=== PATIENT | female | born 1940 | race Caucasian/White ===

== ENCOUNTER → 2016-12-12 | Outpatient (CLI) | payer MEDICARE, BC ==
--- NOTE | 2016-12-13 14:41 | MM ---
Reason for exam: screening (asymptomatic). Last mammogram was performed 1 year and 1 month ago. History: Patient is postmenopausal. Took estrogen for 1 year. Physical Findings: A clinical breast exam by your physician is recommended on an annual basis and results should be correlated with mammographic findings. MG 3D Screening Mammo W/Cad Bilateral CC and MLO view(s) were taken. Prior study comparison: October 31, 2015, bilateral MG screening mammo w CAD. May 31, 2014, mammogram, performed at [facility]. There are scattered fibroglandular densities. There is no discrete abnormality. No significant changes when compared with prior studies. ASSESSMENT: Negative, BI-RAD 1 RECOMMENDATION: Routine screening mammogram of both breasts in 1 year.
== END | disposition home or self-care (01) ==
LOC: RADMAMWWP 08:56
PROVIDERS: ATTEND Family Medicine
DX: Z12.31 Encounter for screening mammogram for malignant neoplasm of breast (principal)
CPT/HCPCS: 77063; G0202

== ENCOUNTER 2017-09-03 13:03 | Emergency (ER) | payer MEDICARE, BC ==
[2017-09-03] MEDS ORDERED: ALBUTEROL NEBULIZED 2.5 MG/3 ML INHALATION STA (14:49)
[2017-09-03] MEDS ORDERED: predniSONE 50 MG TAB PO STA (14:49)
[2017-09-03] MEDS ORDERED: IPRATROPIUM-ALBUTEROL 3 ML NEB INHALATION STA (14:49)
[2017-09-03] MEDS ORDERED: guaiFENesin-Coden 100-10MG/5ML 10 ML CUP PO STA (14:53)
[2017-09-03 15:17] LABS: Basophils % (A) 0 %; Eosinophils # (A) 0.1 k/uL (0-0.7); Eosinophils % (A) 1 %; HCT 42.8 % (34.0-46.0); HGB 14.1 gm/dL (11.4-16.0); Lymphocytes # (A) 1.9 k/uL (1.0-4.8); Lymphocytes % (A) 12 %; MCH 31.5 pg (25.0-35.0); MCV 95.5 fL (80.0-100.0); Mean Platelet Volume 7.5; Monocytes # (A) 1.1 k/uL (0-1.0); Monocytes % (A) 7 %; Neutrophils # (A) 12.7 k/uL (1.3-7.7); Neutrophils % (A) 79 %; Platelet Count 256 k/uL (150-450); RBC 4.48 m/uL (3.80-5.40); RDW 13.8 % (11.5-15.5)
[2017-09-03 15:31] LABS: ALT 62 U/L (9-52); AST 42 U/L (14-36); Albumin 4.5 g/dL (3.5-5.0); Alkaline Phosphatase 74 U/L (38-126); Anion Gap 12 mmol/L; Blood Urea Nitrogen 24 mg/dL (7-17); Calcium 9.5 mg/dL (8.4-10.2); Carbon Dioxide 28 mmol/L (22-30); Chloride 102 mmol/L (98-107); Glucose 109 mg/dL (74-99); Magnesium 2.4 mg/dL (1.6-2.3); Potassium 4.4 mmol/L (3.5-5.1); Sodium 142 mmol/L (137-145); Total Bilirubin 0.4 mg/dL (0.2-1.3); Total Protein 7.2 g/dL (6.3-8.2)
[2017-09-03 15:41] LABS: Prothrombin Time 9.8 sec (9.0-12.0)
--- NOTE | 2017-09-03 16:01 | XR ---
EXAMINATION TYPE: XR chest 2V DATE OF EXAM: 09/03/2017 COMPARISON: 08/31/2017 HISTORY: 77-year-old female with chest pain TECHNIQUE: Frontal and lateral views FINDINGS: Heart normal size. Atherosclerotic arch calcifications. Prominent vasculature within normal limits. S ome mild patchy medial right basilar and peripheral left basilar densities seen slightly increased. N o pleural effusion. IMPRESSION: Some increased medial right basilar and peripheral left basilar densities could represent atelectasis or developing infiltrates.
--- NOTE | 2017-09-03 16:11 | ED ---
URI HPI - General Chief Complaint: Upper Respiratory Infection Stated Complaint: Cough Time Seen by Provider: 09/03/17 14:40 Source: patient, family Mode of arrival: ambulatory Limitations: no limitations - History of Present Illness Initial Comments: Patient complains of difficulty in breathing. She has history of COPD. She is not currently taking and sides. She has no chest pain or pressure. She has no palpitations. She has taken some inhaler medication at home with minimal relief. She has no neck pain or stiffness. She has no pain or swelling the legs. She has no palpitations. She has no headache. - Related Data Home Medications Medication Instructions Recorded Confirmed Rosuvastatin Calcium [Crestor] 40 mg PO HS 08/31/17 09/03/17 Ipratropium-Albuterol Nebulize 3 ml INHALATION RT-QID PRN 09/03/17 09/03/17 [Duoneb 0.5 mg-3 mg/3 ml Soln] guaiFENesin SYRUP 100MG/5ML 400 mg PO Q6H PRN 09/03/17 09/03/17 [Robitussin] predniSONE See Taper PO DAILY 09/03/17 09/03/17 Previous Rx's Medication Instructions Recorded Budesonide-Formot 160-4.5 Mcg 2 puff INHALATION RT-BID #1 puff 09/02/17 [Symbicort 160-4.5 Mcg Inhaler] Cefdinir [Omnicef] 300 mg PO BID #14 cap 09/02/17 guaiFENesin [Mucinex] 600 mg PO Q12HR #60 tablet.er 09/02/17 Doxycycline Hyclate 100 mg PO BID #20 tab 09/03/17 guaiFENesin-Coden 100-10MG/5ML 10 ml PO Q6HR PRN #200 ml 09/03/17 [Robitussin AC] Allergies Allergy/AdvReac Type Severity Reaction Status Date / Time Sulfa (Sulfonamide Allergy Rash/Hives Verified 09/03/17 15:14 Antibiotics) Review of Systems ROS Statement: Those systems with pertinent positive or pertinent negative responses have been documented in the HPI. ROS Other: All systems not noted in ROS Statement are negative. Past Medical History Past Medical History: COPD, Hyperlipidemia, Pulmonary Embolus (PE) Additional Past Medical History / Comment(s): Patient states that she has history of Pulmonary Embolism about 6 years ago. She was placed on Coumadin and monitored for 6 months and then taken off Coumadin at that time. History of Any Multi-Drug Resistant Organisms: None Reported Past Surgical History: Hysterectomy Additional Past Surgical History / Comment(s): Hysterectomy 40 years ago r/t benign tumor. Past Anesthesia/Blood Transfusion Reactions: No Reported Reaction Past Psychological History: No Psychological Hx Reported Smoking Status: Current every day smoker Past Alcohol Use History: Occasional Past Drug Use History: None Reported - Past Family History Father Family Medical History: Myocardial Infarction ([place]) Mother Family Medical History: No Reported History General Exam Limitations: no limitations General appearance: alert, in no apparent distress Head exam: Present: atraumatic, normocephalic, normal inspection Eye exam: Present: normal appearance, PERRL, EOMI. Absent: scleral icterus, conjunctival injection, periorbital swelling ENT exam: Present: normal exam, mucous membranes moist Neck exam: Present: normal inspection. Absent: tenderness, meningismus, lymphadenopathy Respiratory exam: Present: normal lung sounds bilaterally, wheezes. Absent: respiratory distress, rales, rhonchi, stridor Cardiovascular Exam: Present: regular rate, normal rhythm, normal heart sounds. Absent: systolic murmur, diastolic murmur, rubs, gallop, clicks GI/Abdominal exam: Present: soft, normal bowel sounds. Absent: distended, tenderness, guarding, rebound, rigid Extremities exam: Present: normal inspection, full ROM, normal capillary refill. Absent: tenderness, pedal edema, joint swelling, calf tenderness Back exam: Present: normal inspection Neurological exam: Present: alert, oriented X3, CN II-XII intact Psychiatric exam: Present: normal affect, normal mood Skin exam: Present: warm, dry, intact, normal color. Absent: rash Course Vital Signs 09/03/17 09/03/17 09/03/17 13:10 15:21 15:31 Temperature 97.3 F L Pulse Rate 70 71 74 Respiratory 18 Rate Blood Pressure 138/81 O2 Sat by Pulse 91 L Oximetry 09/03/17 09/03/17 09/03/17 15:32 15:42 16:00 Temperature Pulse Rate 74 78 74 Respiratory 20 Rate Blood Pressure 184/87 O2 Sat by Pulse 96 Oximetry Medical Decision Making - Medical Decision Making Patient presents with difficulty in breathing. She has diffuse wheezing and is given breathing treatments and steroids. Chest x-rays negative. Laboratory studies are normal. Patient is feeling better on reevaluation. I will prescribe her doxycycline and Robitussin-AC to go home on. - Lab Data Result diagrams: 09/03/17 14:55 09/03/17 14:55 Lab Results 09/03/17 09/03/17 09/03/17 Range/Units 14:55 14:55 14:55 WBC 16.0 H (3.8-10.6) k/uL RBC 4.48 (3.80-5.40) m/uL Hgb 14.1 (11.4-16.0) gm/dL Hct 42.8 (34.0-46.0) % MCV 95.5 (80.0-100.0) fL MCH 31.5 (25.0-35.0) pg MCHC 33.0 (31.0-37.0) g/dL RDW 13.8 (11.5-15.5) % Plt Count 256 (150-450) k/uL Neutrophils % 79 % Lymphocytes % 12 % Monocytes % 7 % Eosinophils % 1 % Basophils % 0 % Neutrophils # 12.7 H (1.3-7.7) k/uL Lymphocytes # 1.9 (1.0-4.8) k/uL Monocytes # 1.1 H (0-1.0) k/uL Eosinophils # 0.1 (0-0.7) k/uL Basophils # 0.0 (0-0.2) k/uL PT (9.0-12.0) sec INR (<1.2) APTT (22.0-30.0) sec Sodium 142 (137-145) mmol/L Potassium 4.4 (3.5-5.1) mmol/L Chloride 102 (98-107) mmol/L Carbon Dioxide 28 (22-30) mmol/L Anion Gap 12 mmol/L BUN 24 H (7-17) mg/dL Creatinine 0.72 (0.52-1.04) mg/dL Est GFR (MDRD) Af Amer >60 (>60 ml/min/1.73 sqM) Est GFR (MDRD) Non-Af >60 (>60 ml/min/1.73 sqM) Glucose 109 H (74-99) mg/dL Calcium 9.5 (8.4-10.2) mg/dL Magnesium 2.4 H (1.6-2.3) mg/dL Total Bilirubin 0.4 (0.2-1.3) mg/dL AST 42 H (14-36) U/L ALT 62 H (9-52) U/L Alkaline Phosphatase 74 (38-126) U/L Troponin I (0.000-0.034) ng/mL NT-Pro-B Natriuret Pep pg/mL Total Protein 7.2 (6.3-8.2) g/dL Albumin 4.5 (3.5-5.0) g/dL Influenza Type A RNA Not Detected (Not Detectd) Influenza Type B (PCR) Not Detected (Not Detectd) 09/03/17 09/03/17 09/03/17 Range/Units 14:55 14:55 14:55 WBC (3.8-10.6) k/uL RBC (3.80-5.40) m/uL Hgb (11.4-16.0) gm/dL Hct (34.0-46.0) % MCV (80.0-100.0) fL MCH (25.0-35.0) pg MCHC (31.0-37.0) g/dL RDW (11.5-15.5) % Plt Count (150-450) k/uL Neutrophils % % Lymphocytes % % Monocytes % % Eosinophils % % Basophils % % Neutrophils # (1.3-7.7) k/uL Lymphocytes # (1.0-4.8) k/uL Monocytes # (0-1.0) k/uL Eosinophils # (0-0.7) k/uL Basophils # (0-0.2) k/uL PT 9.8 (9.0-12.0) sec INR 1.0 (<1.2) APTT 20.0 L (22.0-30.0) sec Sodium (137-145) mmol/L Potassium (3.5-5.1) mmol/L Chloride (98-107) mmol/L Carbon Dioxide (22-30) mmol/L Anion Gap mmol/L BUN (7-17) mg/dL Creatinine (0.52-1.04) mg/dL Est GFR (MDRD) Af Amer (>60 ml/min/1.73 sqM) Est GFR (MDRD) Non-Af (>60 ml/min/1.73 sqM) Glucose (74-99) mg/dL Calcium (8.4-10.2) mg/dL Magnesium (1.6-2.3) mg/dL Total Bilirubin (0.2-1.3) mg/dL AST (14-36) U/L ALT (9-52) U/L Alkaline Phosphatase (38-126) U/L Troponin I <0.012 (0.000-0.034) ng/mL NT-Pro-B Natriuret Pep 559 pg/mL Total Protein (6.3-8.2) g/dL Albumin (3.5-5.0) g/dL Influenza Type A RNA (Not Detectd) Influenza Type B (PCR) (Not Detectd) 09/03/17 16:09 Twelve-lead EKG shows ventricular rate 62 bpm, normal [place] interval and QRS complexes, no ST elevation or depression, interpreted by me as normal sinus rhythm. Disposition Clinical Impression: Acute exacerbation of chronic obstructive airways disease Disposition: HOME SELF-CARE Condition: Good Instructions: Upper Respiratory Infection (ED) Prescriptions: Doxycycline Hyclate 100 mg PO BID #20 tab guaiFENesin-Coden 100-10MG/5ML [Robitussin AC] 10 ml PO Q6HR PRN #200 ml PRN Reason: Cough Referrals: Radha Ramires DO [Primary Care Provider] - 1-2 days Time of Disposition: 16:11
[2017-09-03 16:22] VITALS: BP 176/77; PULSE 83; RESP 18; TEMP 98.3
== END 2017-09-03 16:29 | disposition home or self-care (01) ==
LOC: EC 13:03
DX: J44.1 Chronic obstructive pulmonary disease with (acute) exacerbation (principal); E78.5 Hyperlipidemia, unspecified; F17.200 Nicotine dependence, unspecified, uncomplicated; Z88.2 Allergy status to sulfonamides; Z79.52 Long term (current) use of systemic steroids; Z79.899 Other long term (current) drug therapy
CPT/HCPCS: 36415; 94640 ×2; 93005; 83880; 80053; 83735; 84484; 85025; 85610; 85730; 87502; 71046; 99284; J7512

== ENCOUNTER → 2018-02-12 | Outpatient (CLI) | payer MEDICARE, BC ==
--- NOTE | 2018-02-13 10:26 | MM ---
Reason for exam: screening (asymptomatic). Last mammogram was performed 1 year and 2 months ago. History: Patient is postmenopausal. Took estrogen for 1 year. Physical Findings: A clinical breast exam by your physician is recommended on an annual basis and results should be correlated with mammographic findings. MG 3D Screening Mammo W/Cad Bilateral CC and MLO view(s) were taken. Prior study comparison: December 12, 2016, bilateral MG 3d screening mammo w/cad. October 31, 2015, bilateral MG screening mammo w CAD. The breast tissue is heterogeneously dense. This may lower the sensitivity of mammography. There is no discrete abnormality. No significant changes when compared with prior studies. ASSESSMENT: Negative, BI-RAD 1 RECOMMENDATION: Routine screening mammogram of both breasts in 1 year.
== END | disposition home or self-care (01) ==
LOC: RADMAMWWP 09:35
PROVIDERS: ATTEND Family Medicine
DX: Z12.31 Encounter for screening mammogram for malignant neoplasm of breast (principal)
CPT/HCPCS: 77063; 77067

== ENCOUNTER 2018-07-28 05:53 | Emergency (ER) | payer MEDICARE, BC ==
[2018-07-28 06:05] VITALS: TEMP 98
--- NOTE | 2018-07-28 07:07 | XR ---
EXAMINATION TYPE: XR shoulder complete RT DATE OF EXAM: 07/28/2018 COMPARISON: NONE HISTORY: Fall. Pain TECHNIQUE: 3 views FINDINGS: There is comminuted fracture of the humeral neck. There is no dislocation. Scapula appears intact. IMPRESSION: Acute comminuted humeral neck fracture.
--- NOTE | 2018-07-28 07:08 | XR ---
EXAMINATION TYPE: XR ribs RT DATE OF EXAM: 07/28/2018 COMPARISON: NONE HISTORY: Fall. Rib pain. TECHNIQUE: 2 views FINDINGS: I see no pleural effusion or pneumothorax. Right lung is clear of infiltrate. There is no e vidence of a rib fracture. There is an impacted comminuted humeral neck fracture noted. IMPRESSION: No rib fracture seen.
--- NOTE | 2018-07-28 07:09 | ED ---
Upper Extremity HPI - General Chief Complaint: Extremity Injury, Upper Stated Complaint: Shoulder Injury Time Seen by Provider: 07/28/18 06:36 Source: patient Mode of arrival: ambulatory Limitations: no limitations - History of Present Illness Initial Comments: Also pleasant 78-year-old female who presents to the emergency department today for evaluation of right shoulder pain. Patient reports she had a mechanical trip and fall yesterday landing on her right shoulder, she reports she slept on a couch all night - Related Data Home Medications Medication Instructions Recorded Confirmed Rosuvastatin Calcium [Crestor] 40 mg PO HS 08/31/17 09/03/17 Ipratropium-Albuterol Nebulize 3 ml INHALATION RT-QID PRN 09/03/17 09/03/17 [Duoneb 0.5 mg-3 mg/3 ml Soln] guaiFENesin SYRUP 100MG/5ML 400 mg PO Q6H PRN 09/03/17 09/03/17 [Robitussin] predniSONE See Taper PO DAILY 09/03/17 09/03/17 Previous Rx's Medication Instructions Recorded Budesonide-Formot 160-4.5 Mcg 2 puff INHALATION RT-BID #1 puff 09/02/17 [Symbicort 160-4.5 Mcg Inhaler] Cefdinir [Omnicef] 300 mg PO BID #14 cap 09/02/17 guaiFENesin [Mucinex] 600 mg PO Q12HR #60 tablet.er 09/02/17 Doxycycline Hyclate 100 mg PO BID #20 tab 09/03/17 guaiFENesin-Coden 100-10MG/5ML 10 ml PO Q6HR PRN #200 ml 09/03/17 [Robitussin AC] Acetaminophen with Codeine 1 tab PO Q6H PRN 3 Days #12 tab 07/28/18 [Tylenol w/codeine #3] Allergies Allergy/AdvReac Type Severity Reaction Status Date / Time Sulfa (Sulfonamide Allergy Rash/Hives Verified 09/03/17 15:14 Antibiotics) Review of Systems ROS Statement: Those systems with pertinent positive or pertinent negative responses have been documented in the HPI. ROS Other: All systems not noted in ROS Statement are negative. Past Medical History Past Medical History: COPD, Hyperlipidemia, Pulmonary Embolus (PE) Additional Past Medical History / Comment(s): Patient states that she has history of Pulmonary Embolism about 6 years ago. She was placed on Coumadin and monitored for 6 months and then taken off Coumadin at that time. History of Any Multi-Drug Resistant Organisms: None Reported Past Surgical History: Hysterectomy Additional Past Surgical History / Comment(s): Hysterectomy 40 years ago r/t benign tumor. Past Anesthesia/Blood Transfusion Reactions: No Reported Reaction Past Psychological History: No Psychological Hx Reported Smoking Status: Current every day smoker Past Alcohol Use History: Occasional Past Drug Use History: None Reported - Past Family History Father Family Medical History: Myocardial Infarction ([place]) Mother Family Medical History: No Reported History General Exam - General Exam Comments Initial Comments: Physical Exam GENERAL: Patient is well-developed and well-nourished. Patient is nontoxic and well- hydrated and is in no distress. HENT: Normocephalic, Atraumatic. EYES: PERRL, EOMI PULMONARY: Unlabored respirations. No audible rales rhonchi or wheezing was noted. CARDIOVASCULAR: There is a regular rate and rhythm without any murmurs gallops or rubs. ABDOMEN: Soft and nontender with normal bowel sounds. SKIN: Skin is clear with no lesions or rashes and otherwise unremarkable. : Deferred NEUROLOGIC: Patient is alert and oriented x3. Moving all extremities spontaneously MUSCULOSKELETAL: Increase range of motion of right shoulder secondary to pain PSYCHIATRIC: Normal psychiatric evaluation. Limitations: no limitations Limitations: no limitations Course Vital Signs 07/28/18 06:02 Temperature 98.0 F Pulse Rate 76 Respiratory 16 Rate Blood Pressure 159/77 O2 Sat by Pulse 99 Oximetry Medical Decision Making - Medical Decision Making The patient was seen and evaluated, history is obtained from the patient Studies ordered Reveals a comminuted humeral neck fracture Patient is neurovascularly intact Patient was given Tylenol 3 for pain management arm was placed in a sling Patient was advised she needs to follow-up with orthopedic surgery for further management. Considering that it is [place] and pharmacies are not open in this area patient was given 2 Tylenol 3 starter packs for pain management as well as a prescription for Tylenol 3. Dangers of narcotic medications in the need for observation were discussed with the patient and her son at bedside, son is a lot of force officer familiar with narcotics. He is comfortable with this plan. All questions pertaining care were answered and parameters were discussed patient was discharged home in stable condition. Disposition Clinical Impression: Fracture of humerus Disposition: HOME SELF-CARE Instructions: Arm Fracture in Adults (ED) Additional Instructions: You have a comminuted left humerus neck fracture Prescriptions: Acetaminophen with Codeine [Tylenol w/codeine #3] 1 tab PO Q6H PRN 3 Days #12 tab PRN Reason: Pain Is patient prescribed a controlled substance at d/c from ED?: Yes Referrals: Radha Ramires DO [Primary Care Provider] - 1-2 days Taco Smith DO [Doctor of Osteopathic Medicine] - 1-2 days
[2018-07-28] MEDS ORDERED: ACET/COD 300 MG/30 MG STARTER PACK 6 TAB BTL PO STA ×2 (07:11→07:17)
[2018-07-28 07:47] VITALS: BP 134/82; PULSE 70; RESP 20
== END 2018-07-28 07:40 | disposition home or self-care (01) ==
LOC: EC 05:53
DX: S42.291A Other displaced fracture of upper end of right humerus, initial encounter for closed fracture (principal); J44.9 Chronic obstructive pulmonary disease, unspecified; E78.5 Hyperlipidemia, unspecified; F17.200 Nicotine dependence, unspecified, uncomplicated; Z88.2 Allergy status to sulfonamides; Z79.52 Long term (current) use of systemic steroids; Z79.899 Other long term (current) drug therapy; W01.0XXA Fall on same level from slipping, tripping and stumbling without subsequent striking against object, initial encounter
CPT/HCPCS: 99283

== ENCOUNTER → 2018-07-31 | Outpatient (CLI) | payer MEDICARE, BC ==
--- NOTE | 2018-08-01 13:57 | CT ---
EXAMINATION TYPE: CT shoulder RT wo con DATE OF EXAM: 07/31/2018 COMPARISON: Right shoulder x-rays 07/28/2018 HISTORY: right shoulder pain following fall [address] DLP: 496 mGycm Automated exposure control for dose reduction was used. TECHNIQUE: Axial images through the right shoulder at 3 mm thick sections. Reconstructed images perfo rmed in the coronal and sagittal planes. Three-D reconstructed images performed separately on the [facility] computer are reviewed. FINDINGS: There is a comminuted fracture of the surgical neck of the humerus. There is avulsion of the greater tuberosity which lies between the humeral head and the acromion. Humeral head appears to articulate w ith the glenoid. The distal fracture fragment is slightly anteriorly displaced from the humeral head. IMPRESSION: 1. COMMINUTED FRACTURE SURGICAL NECK OF THE HUMERUS. 2. GREATER TUBEROSITY APPEARS AVULSED AND SUPERIOR TO THE HEAD OF THE HUMERUS BELOW THE ACROMION. 3. THE PROXIMAL SHAFT OF THE HUMERUS IS SLIGHTLY ANTERIORLY DISPLACED FROM THE HUMERAL HEAD LESS THAN ONE SHAFT WIDTH.
== END | disposition home or self-care (01) ==
LOC: RADCTMAIN 16:02
PROVIDERS: ATTEND Orthopaedic Surgery Sports Medicine
DX: S42.211A Unspecified displaced fracture of surgical neck of right humerus, initial encounter for closed fracture (principal); S43.014A Anterior dislocation of right humerus, initial encounter

== ENCOUNTER → 2020-01-31 | Outpatient (CLI) | payer MEDICARE, BC ==
[2020-01-31 10:12] LABS: Basophils # (A) 0.1 k/uL (0-0.2); Basophils % (A) 1 %; Eosinophils # (A) 0.6 k/uL (0-0.7); Eosinophils % (A) 7 %; HCT 44.2 % (34.0-46.0); HGB 14.3 gm/dL (11.4-16.0); Lymphocytes # (A) 2.5 k/uL (1.0-4.8); Lymphocytes % (A) 28 %; MCH 30.4 pg (25.0-35.0); MCHC 32.3 g/dL (31.0-37.0); MCV 93.9 fL (80.0-100.0); Mean Platelet Volume 7.7; Monocytes # (A) 0.7 k/uL (0-1.0); Monocytes % (A) 8 %; Neutrophils # (A) 4.9 k/uL (1.3-7.7); Neutrophils % (A) 54 %; Platelet Count 269 k/uL (150-450); RDW 12.6 % (11.5-15.5)
[2020-01-31 10:28] LABS: African American GFR (CKD) >90 (>60 ml/min/1.73 sqM); Anion Gap 9 mmol/L; Blood Urea Nitrogen 11 mg/dL (7-17); Carbon Dioxide 25 mmol/L (22-30); Chloride 105 mmol/L (98-107); Glucose 106 mg/dL (74-99); Non-African American GFR(CKD) 86 (>60 ml/min/1.73 sqM); Potassium 4.9 mmol/L (3.5-5.1); Sodium 139 mmol/L (137-145)
== END | disposition home or self-care (01) ==
LOC: LABPAT 09:04
PROVIDERS: ATTEND Obstetrics & Gynecology
DX: Z01.810 Encounter for preprocedural cardiovascular examination (principal); Z01.818 Encounter for other preprocedural examination; N81.10 Cystocele, unspecified
CPT/HCPCS: 80051; 82565; 82947; 84520; 85025; 86850; 86900; 86901; 87086; 93005

== ENCOUNTER 2020-02-08 06:01 | Day surgery (SDC) | payer MEDICARE, BC ==
[2020-02-02 12:26] VITALS: BMI 27.3
[~2020-02-08 06:01] MED LIST: DEXAMETHASONE SOD PHOSPHATE 10 MG/ML 1 ML VIAL IV ONE; HYDROmorphone 0.5 MG/0.5 ML SYRINGE IVP PRN; LIDOCAINE 1% (10MG/ML) FOR IV START INTRADERMA PRN; MIDAZOLAM 2 MG/2 ML VIAL IV PRN; ONDANSETRON 4 MG/2 ML VIAL IVP ONE; fentaNYL (PF) 50 MCG/ML 2 ML AMP IV PRN
[2020-02-08] MEDS ORDERED: ONDANSETRON 4 MG/2 ML VIAL ONE (06:21)
[2020-02-08] MEDS ORDERED: LACTATED RINGERS 1,000 ML IV ONE ×2 (06:31→09:06)
[2020-02-08] MEDS ORDERED: VASOPRESSIN 20 UNIT/ML 1 ML VIAL SQ ONE ×2 (08:06)
[2020-02-08] MEDS ORDERED: BACITRACIN 500 UNIT/GM OINT 28.4 GM TUBE TOPICAL ONE (08:06)
[2020-02-08] MEDS ORDERED: IBUPROFEN 600 MG TAB PO PRN (08:37)
[2020-02-08] MEDS ORDERED: METOCLOPRAMIDE 5 MG/ML 2 ML VIAL IVP PRN (08:37)
[2020-02-08] MEDS ORDERED: diphenhydrAMINE 50 MG/ML 1 ML VIAL IVP PRN (08:37)
[2020-02-08] MEDS ORDERED: ONDANSETRON 4 MG/2 ML VIAL IVP PRN (08:37)
[2020-02-08] MEDS ORDERED: KETOROLAC 30 MG/ML 1 ML VIAL IVP PRN (08:37)
--- NOTE | 2020-02-08 08:37 | P.OP ---
Date of Procedure: 02/08/20 Preoperative Diagnosis: Symptomatic grade 4 cystocele Postoperative Diagnosis: Same Procedure(s) Performed: Anterior colporrhaphy Anesthesia: JEFFERY Surgeon: Osiris Sierra Seo Strategist #1: Bábrara Rae Estimated Blood Loss (ml): 10 IV fluids (ml): 400 Urine output (ml): 300 Pathology: none sent Condition: stable Disposition: PACU Description of Procedure: Patient is brought to the operating room where a general anesthetic is administered after the placement of a spinal with Duramorph. She's placed in the dorsal lithotomy position. Antibiotics are given. The appropriate timeout is performed to assure proper patient and procedural identification. The vagina and perineal body are all prepped and draped in usual sterile fashion. Bladder is drained for approximately 300 mL of clear yellow urine. Weighted speculum was placed into the vagina. The uterosacral cardinal ligament dimples of the vaginal cough are identified and grasped with Allis clamps. A scalpel is used to make an incision between the 2 Allis clamps. The anterior vaginal mucosa is then injected with dilute Pitressin solution. Metzenbaum scissors are used in the midline to undermine and separate the overlying mucosa from the underlying fascia. The edges of the vaginal tissues are grasped with Allis clamps and held in a fanlike fashion. A sponge rolled finger is used 2 separate the underlying fascia from the overlying mucosa. Wei catheter is then placed in the urine is clear. The bladder is drained. 2-0 Vicryl sutures used in an interrupted fashion to bring together the fascial edges thereby completely reducing the cystocele. Metzenbaum scissors are used to trim the redundant mucosa. 2-0 Vicryl is now used in a running locking stitch to close the anterior vaginal wall and complete the case. The vagina is packed with one-inch iodophor gauze with basic tracing. Wei is noted to be draining clear urine. All sponge needle and enhancement counts are correct at the end of our procedure. Patient is brought back to the recovery room in very good condition with stable vital signs including a blood pressure of 118/60, pulse 80.
[2020-02-08] MEDS: LACTATED RINGERS 1,000 ML IV SCH ×2 (09:58→17:29)
[2020-02-08] MEDS ORDERED: MORPHINE SULFATE 2 MG/ML SYRINGE IVP PRN (14:12)
[2020-02-08] MEDS ORDERED: NALOXONE 0.4 MG/ML 1 ML VIAL IV PRN (14:12)
[2020-02-08] MEDS: SIMETHICONE 80 MG CHEWABLE PO PRN ×2 (17:29→20:20)
--- NOTE | 2020-02-09 07:18 | P.PN ---
Progress Note - Text Progress Note Date: 02/09/20 Patient was seen at bedside at 625 AM. Patient is postop day 1 from Anterior colporrhaphy with spinal Duramorph done for postop pain control. VAS score is 0/10. Patient denies side effects. Lower extremity sensation and motor function is intact. Patient has ambulated.
--- NOTE | 2020-02-09 07:49 | P.DS ---
Providers Date of admission: 02/08/2020 Expected date of discharge: 02/09/20 Attending physician: Osiris Sierra Primary care physician: Radha Mercy Hospital Course: This is a 79-year-old white female status post GIOVANNA/BSO many years ago for benign disease. Patient presented with increasingly symptomatic grade 4 cystocele, wishing surgical repair. She was counseled regarding the use of pessary, this she declined. Please see my dictated history and physical examination for details. Patient was admitted under my care and underwent a cystocele repair yesterday. She did very well intraoperatively, no difficulties were encountered. She received a spinal with Duramorph with good results. Vaginal packing was placed, Wei catheter placed. Please see dictated operative note for details. This morning the patient is doing well. The vaginal packing has been removed. Wei catheter is been removed. We are awaiting spontaneous void, which will be measured along with post void residual. Patient has no complaints, no CVA tenderness, no vaginal bleeding, no issues with pain. She is judged to be in very good condition for discharge home pending spontaneous void. Patient will follow-up with me in the office in 2 weeks. I have reminded her no intercourse, tampons or douching. She will use [id number] Advil or Aleve, or Motrin as needed for pain. I've asked her to call me with any issues with urination, with any vaginal bleeding, with any pain not alleviated by [id number] products, or indeed with any concerns. No driving for 2 weeks. Assessment: Doing well postoperative day #1 Patient Condition at Discharge: Good Plan - Discharge Summary Discharge Rx Participant: No New Discharge Prescriptions: No Action Rosuvastatin Calcium [Crestor] 40 mg PO HS Discharge Medication List Rosuvastatin Calcium [Crestor] 40 mg PO HS 08/31/17 [History] Follow up Appointment(s)/Referral(s): Osiris Sierra MD [STAFF PHYSICIAN] - 2 Weeks Activity/Diet/Wound Care/Special Instructions: Activity as tolerated, rest as needed. No driving. No hot tubs, no pools, no swimming, no bath tubs. No house work. No lifting anything heavier than a gallon of milk. No intercourse. Drink plenty of fluids. Call Dr Sierra if you develop a fever or chills, increase in pain, inability to urinate, bleeding from your vagina, or if you have any other questions or concerns. Discharge Disposition: HOME SELF-CARE
[2020-02-11 05:22] VITALS: BP 117/68; PULSE 64; RESP 18; TEMP 97.7
== END 2020-02-09 11:45 | disposition home or self-care (01) ==
LOC: OR 06:01 → 6PED 09:05 → OR 02-09 11:45
PROVIDERS: ATTEND Obstetrics & Gynecology
DX: N81.10 Cystocele, unspecified (principal); E78.5 Hyperlipidemia, unspecified; M19.90 Unspecified osteoarthritis, unspecified site; Z88.2 Allergy status to sulfonamides; F17.210 Nicotine dependence, cigarettes, uncomplicated; Z86.711 Personal history of pulmonary embolism; Z90.710 Acquired absence of both cervix and uterus; Z98.890 Other specified postprocedural states; Z79.899 Other long term (current) drug therapy
CPT/HCPCS: 57240; J1200; J1100; J0690; J2405; 86850; 86900; 86901

== ENCOUNTER 2020-02-26 13:17 | Inpatient (IN) | payer MEDICARE, BC ==
[~2020-02-26 13:17] MED LIST changes: -DEXAMETHASONE SOD PHOSPHATE 10 MG/ML 1 ML VIAL IV ONE; -HYDROmorphone 0.5 MG/0.5 ML SYRINGE IVP PRN; +IV FLUID CONTINUATION 500 ML IV ONE; -LIDOCAINE 1% (10MG/ML) FOR IV START INTRADERMA PRN; -MIDAZOLAM 2 MG/2 ML VIAL IV PRN; -ONDANSETRON 4 MG/2 ML VIAL IVP ONE; +SODIUM CHLORIDE 0.9% 1,000 ML IV ONE; -fentaNYL (PF) 50 MCG/ML 2 ML AMP IV PRN
[2020-02-26] MEDS ORDERED: MORPHINE SULFATE 4 MG/ML SYRINGE IV STA (13:52)
[2020-02-26] MEDS ORDERED: SODIUM CHLORIDE 0.9% 1,000 ML IV STA (13:52)
[2020-02-26] MEDS ORDERED: ONDANSETRON 4 MG/2 ML VIAL IVP STA (13:52)
[2020-02-26 14:21] LABS: Basophils # (A) 0.1 k/uL (0-0.2); Basophils % (A) 1 %; Eosinophils # (A) 0.3 k/uL (0-0.7); Eosinophils % (A) 2 %; HCT 44.7 % (34.0-46.0); HGB 14.7 gm/dL (11.4-16.0); Lymphocytes # (A) 1.2 k/uL (1.0-4.8); Lymphocytes % (A) 8 %; MCH 30.2 pg (25.0-35.0); MCHC 32.8 g/dL (31.0-37.0); MCV 92.3 fL (80.0-100.0); Mean Platelet Volume 7.8; Monocytes # (A) 0.7 k/uL (0-1.0); Monocytes % (A) 5 %; Neutrophils # (A) 13.3 k/uL (1.3-7.7); Neutrophils % (A) 84 %; Platelet Count 289 k/uL (150-450); RBC 4.85 m/uL (3.80-5.40); RDW 12.4 % (11.5-15.5); WBC 15.8 k/uL (3.8-10.6)
[2020-02-26] MEDS ORDERED: HYDROmorphone 1 MG/ML 1 ML SYRINGE IVP STA (14:28)
[2020-02-26 14:30] LABS: Albumin 4.5 g/dL (3.5-5.0); Calcium 9.4 mg/dL (8.4-10.2); Potassium 4.8 mmol/L (3.5-5.1); Total Bilirubin 0.6 mg/dL (0.2-1.3)
--- NOTE | 2020-02-26 14:39 | ED ---
Abdominal Pain HPI <Nolberto Aponte - Last Filed: 02/26/20 17:12> - General Source: patient Mode of arrival: ambulatory Limitations: no limitations <Muriel Veras - Last Filed: 02/29/20 21:12> - General Chief Complaint: Abdominal Pain Stated Complaint: abd/back pain Time Seen by Provider: 02/26/20 13:30 - History of Present Illness Initial Comments: Patient is a 79-year-old female with past history of hyperlipidemia, COPD who presents to the emergency department with reported suprapubic abdominal pain. Patient states it was sudden onset this morning. She describes it as a sharp pain which radiates around to her bilateral flanks. Patient took some Tylenol and had no improvement in her symptoms. Pain appears to be getting worse. She denies any numbness, tingling or weakness in her lower extremities. She denies any urinary changes to include dysuria, hematuria or difficulty voiding. He had a cystocele repair on February [address] de la torre. She has been having some pink discharge however states this has improved. Denies diarrhea, constipation, melenic stools or hematochezia. Did have bowel movement this morning that was normal in color and consistency for her. She continues to pass cast. She denies ripping or tearing sensation to her back. No chest pain or shortness of breath. No fevers or chills. Has had dry heaving without emesis. No other alleviating, preciptating or modifying factors (Muriel Veras) - Related Data Home Medications Medication Instructions Recorded Confirmed Rosuvastatin Calcium [Crestor] 40 mg PO HS 08/31/17 02/26/20 Acetaminophen Tab [Tylenol] 650 mg PO ONCE PRN 02/26/20 02/26/20 Latanoprost/Pf [Latanoprost 0.005% 1 drop BOTH EYES HS 02/26/20 02/26/20 Eye Drop] Timolol 0.5% Ophth Soln [Timoptic 1 drop BOTH EYES BID 02/26/20 02/26/20 0.5% Ophth Soln] diphenhydrAMINE [Benadryl] 25 mg PO HS 02/26/20 02/26/20 Allergies Allergy/AdvReac Type Severity Reaction Status Date / Time Sulfa (Sulfonamide Allergy Severe Rash/Hives Verified 02/26/20 17:10 Antibiotics) Review of Systems ROS Other: All systems not noted in ROS Statement are negative. <Nolberto Aponte - Last Filed: 02/26/20 17:12> ROS Other: All systems not noted in ROS Statement are negative. <Muriel Veras - Last Filed: 02/29/20 21:12> ROS Statement: Those systems with pertinent positive or pertinent negative responses have been documented in the HPI. Past Medical History Past Medical History: COPD, Hyperlipidemia, Pulmonary Embolus (PE) Additional Past Medical History / Comment(s): Patient states that she has history of Pulmonary Embolism about 6 years ago. She was placed on Coumadin and monitored for 6 months and then taken off Coumadin at that time. History of Any Multi-Drug Resistant Organisms: None Reported Past Surgical History: Hysterectomy Additional Past Surgical History / Comment(s): colonoscopy, cyctocele repair 02/08/2020 Past Anesthesia/Blood Transfusion Reactions: No Reported Reaction Past Psychological History: No Psychological Hx Reported Smoking Status: Current every day smoker Past Alcohol Use History: Occasional Past Drug Use History: None Reported - Past Family History Father Family Medical History: Myocardial Infarction ([place]) Mother Family Medical History: No Reported History <Muriel Veras - Last Filed: 02/29/20 21:12> General Exam Limitations: no limitations General appearance: alert, in distress Head exam: Present: atraumatic, normocephalic, normal inspection Eye exam: Present: normal appearance, PERRL, EOMI. Absent: scleral icterus, conjunctival injection, periorbital swelling ENT exam: Present: normal exam, mucous membranes moist Neck exam: Present: normal inspection. Absent: tenderness, meningismus, lymphadenopathy Respiratory exam: Present: normal lung sounds bilaterally. Absent: respiratory distress, wheezes, rales, rhonchi, stridor Cardiovascular Exam: Present: regular rate, normal rhythm, normal heart sounds. Absent: systolic murmur, diastolic murmur, rubs, gallop, clicks GI/Abdominal exam: Present: soft, tenderness (suprapubic), normal bowel sounds. Absent: distended, guarding, rebound, rigid Extremities exam: Present: normal inspection, full ROM, normal capillary refill. Absent: tenderness, pedal edema, joint swelling, calf tenderness Back exam: Present: normal inspection Neurological exam: Present: alert, oriented X3, CN II-XII intact Psychiatric exam: Present: normal affect, normal mood Skin exam: Present: warm, dry, intact, normal color. Absent: rash <ArdenselwynKatinaMuriel Narendra - Last Filed: 02/29/20 21:12> Course Vital Signs 02/26/20 02/26/20 02/26/20 13:27 14:32 17:14 Temperature 98.1 F Pulse Rate 70 78 97 Respiratory 18 20 24 Rate Blood Pressure 160/70 152/60 155/52 O2 Sat by Pulse 97 98 93 L Oximetry Medical Decision Making - Lab Data Result diagrams: 02/26/20 14:09 02/26/20 14:09 <Nolebrto Aponte - Last Filed: 02/26/20 17:12> - Lab Data Result diagrams: 02/29/20 03:46 02/29/20 11:53 <EdaMuriel Narendra - Last Filed: 02/29/20 21:12> - Medical Decision Making Patient reevaluated after sign out, she does continue to have moderate to severe pain. Patient appears ill with persistent nausea. She has urinalysis showing nitrate positive greater than 182 white cells concern for infection on top of this stone with hydronephrosis. I did discuss the case with Dr. Talbert who will admit this patient. Patient will be continued on IV antibiotics awaiting culture results. (Nolberto Aponte) Upon arrival patient is placed in room 16. A thorough history and physical exam is performed. Patient is in significant amount of pain. IV is established and she was given 4 mg of morphine. Laboratory studies were conducted. Patient is reevaluated and continues to have pain. She is given 1 mg Dilaudid. Laboratory studies are remarkable for white count of 15.8. Remainder laboratory studies are normal. Patient sent over for CT for abdomen and pelvis which does demonstrate left sided hydronephrosis and hydroureter secondary to a low-density obstructing calculus in the proximal left ureter. Sigmoid diverticulosis without diverticulitis. The patient continues to have 10 out of 10 pain. She is then given 15 mg of Toradol. Patient is able to provide a urine sample and I am currently awaiting those results. I discussed the diagnosis, differential and treatment options. Patient continues to have significant pain and therefore I did recommend hospital admission. I did discuss the case with Dr. Talbert at 3:40 pm who requested that we continue to attempt to control the patient's pain. The patient will be signed out to Dr. Aponte at this time pending urine studies. (Muriel Veras) - Lab Data Lab Results 02/26/20 02/26/20 02/26/20 Range/Units 14:09 14:09 14:09 WBC 15.8 H (3.8-10.6) k/uL RBC 4.85 (3.80-5.40) m/uL Hgb 14.7 (11.4-16.0) gm/dL Hct 44.7 (34.0-46.0) % MCV 92.3 (80.0-100.0) fL MCH 30.2 (25.0-35.0) pg MCHC 32.8 (31.0-37.0) g/dL RDW 12.4 (11.5-15.5) % Plt Count 289 (150-450) k/uL Neutrophils % 84 % Lymphocytes % 8 % Monocytes % 5 % Eosinophils % 2 % Basophils % 1 % Neutrophils # 13.3 H (1.3-7.7) k/uL Lymphocytes # 1.2 (1.0-4.8) k/uL Monocytes # 0.7 (0-1.0) k/uL Eosinophils # 0.3 (0-0.7) k/uL Basophils # 0.1 (0-0.2) k/uL PT 9.7 (9.0-12.0) sec INR 0.9 (<1.2) APTT 21.2 L (22.0-30.0) sec Sodium 137 (137-145) mmol/L Potassium 4.8 (3.5-5.1) mmol/L Chloride 104 (98-107) mmol/L Carbon Dioxide 23 (22-30) mmol/L Anion Gap 10 mmol/L BUN 19 H (7-17) mg/dL Creatinine 0.83 (0.52-1.04) mg/dL Est GFR (CKD-EPI)AfAm 78 (>60 ml/min/1.73 sqM) Est GFR (CKD-EPI)NonAf 68 (>60 ml/min/1.73 sqM) Glucose 143 H (74-99) mg/dL Plasma Lactic Acid [place] (0.7-2.0) mmol/L Calcium 9.4 (8.4-10.2) mg/dL Total Bilirubin 0.6 (0.2-1.3) mg/dL AST 33 (14-36) U/L ALT 30 (4-34) U/L Alkaline Phosphatase 101 (38-126) U/L Total Protein 7.0 (6.3-8.2) g/dL Albumin 4.5 (3.5-5.0) g/dL Lipase 89 (23-300) U/L Urine Color Urine Appearance (Clear) Urine pH (5.0-8.0) Ur Specific [place] (1.001-1.035) Urine Protein (Negative) Urine Glucose (UA) (Negative) Urine Ketones (Negative) Urine Blood (Negative) Urine Nitrite (Negative) Urine Bilirubin (Negative) Urine Urobilinogen (<2.0) mg/dL Ur Leukocyte Esterase (Negative) Urine RBC (0-5) /hpf Urine WBC (0-5) /hpf Ur Squamous Epith Cells (0-4) /hpf 02/26/20 02/26/20 Range/Units 14:09 15:38 WBC (3.8-10.6) k/uL RBC (3.80-5.40) m/uL Hgb (11.4-16.0) gm/dL Hct (34.0-46.0) % MCV (80.0-100.0) fL MCH (25.0-35.0) pg MCHC (31.0-37.0) g/dL RDW (11.5-15.5) % Plt Count (150-450) k/uL Neutrophils % % Lymphocytes % % Monocytes % % Eosinophils % % Basophils % % Neutrophils # (1.3-7.7) k/uL Lymphocytes # (1.0-4.8) k/uL Monocytes # (0-1.0) k/uL Eosinophils # (0-0.7) k/uL Basophils # (0-0.2) k/uL PT (9.0-12.0) sec INR (<1.2) APTT (22.0-30.0) sec Sodium (137-145) mmol/L Potassium (3.5-5.1) mmol/L Chloride (98-107) mmol/L Carbon Dioxide (22-30) mmol/L Anion Gap mmol/L BUN (7-17) mg/dL Creatinine (0.52-1.04) mg/dL Est GFR (CKD-EPI)AfAm (>60 ml/min/1.73 sqM) Est GFR (CKD-EPI)NonAf (>60 ml/min/1.73 sqM) Glucose (74-99) mg/dL Plasma Lactic Acid [place] 1.5 (0.7-2.0) mmol/L Calcium (8.4-10.2) mg/dL Total Bilirubin (0.2-1.3) mg/dL AST (14-36) U/L ALT (4-34) U/L Alkaline Phosphatase (38-126) U/L Total Protein (6.3-8.2) g/dL Albumin (3.5-5.0) g/dL Lipase (23-300) U/L Urine Color Light Yellow Urine Appearance Cloudy H (Clear) Urine pH 7.5 (5.0-8.0) Ur Specific [place] 1.040 H (1.001-1.035) Urine Protein Trace H (Negative) Urine Glucose (UA) Negative (Negative) Urine Ketones Negative (Negative) Urine Blood Moderate H (Negative) Urine Nitrite Positive H (Negative) Urine Bilirubin Negative (Negative) Urine Urobilinogen <2.0 (<2.0) mg/dL Ur Leukocyte Esterase Large H (Negative) Urine RBC 10 H (0-5) /hpf Urine WBC >182 H (0-5) /hpf Ur Squamous Epith Cells 1 (0-4) /hpf - EKG Data EKG Comments: EKG demonstrates a normal sinus rhythm with ventricular rate of 65. IN interval 200. QRS 92. QTC of 443. No acute ST segment elevations or depressions concerning for ischemic changes. Incomplete right bundle branch block (Muriel Veras) Disposition Is patient prescribed a controlled substance at d/c from ED?: No Decision to Admit Reason: Admit from EC Decision Date: 02/26/20 Decision Time: 17:14 <Nolberto Aponte - Last Filed: 02/26/20 17:12> <Muriel Veras - Last Filed: 02/29/20 21:12> Clinical Impression: Abdominal pain, Left ureteral stone, Hydronephrosis, UTI (urinary tract infection) Disposition: ADMITTED IP TO THIS HOSP Condition: Stable
[2020-02-26 14:56] LABS: INR 0.9 (<1.2); Prothrombin Time 9.7 sec (9.0-12.0)
[2020-02-26 14:58] LABS: Partial Thromboplastin Time 21.2 sec (22.0-30.0)
--- NOTE | 2020-02-26 15:11 | CT ---
EXAMINATION TYPE: CT abdomen pelvis w con DATE OF EXAM: 02/26/2020 COMPARISON: None HISTORY: Pelvic pain. Recent cystocele repair. CT DLP: 882 mGycm Automated exposure control for dose reduction was used. CONTRAST: Performed with IV Contrast, patient injected with 100 mL of Isovue 300. Images obtained from the diaphragm to the floor the pelvis with IV contrast. FINDINGS: There is mild scarring and subsegmental atelectasis at the lung bases. There is no pleural effusion. Heart size is normal. There is no pericardial effusion. There is some mild fatty infiltration of the liver. Spleen is intact. There is 6 mm cyst in the splee n. There is no pancreatic mass. Stomach appears intact. There is 5 mm calcified gallstone. There is n o gallbladder wall thickening. The bile ducts are not dilated. There is no adrenal mass. The left kidney shows hydronephrosis and perinephric edema. There is dilate d left renal pelvis the left ureter is not dilated however. There is slight increased attenuation in the proximal left ureter that could be low-density calculus seen on axial image 49. Bladder distends smoothly. Right kidney shows no evidence of mass or obstruction. Delayed images show a delayed left s guillermina pyelogram. There is no evidence of thickened appendix. There is no mesenteric edema. There is no ascites or free air. There is no bowel obstruction. There are multiple sigmoid diverticula. I see no sign of diverticulitis. Bladder distends smoothly. T here is no evidence of a pelvic mass. There is no inguinal hernia. Lumbar vertebra have fairly normal alignment. There is narrowing at L5-S1 disc space. There is no lum bar compression fracture. Bony pelvis is intact. The hip joints are intact. IMPRESSION: Left-sided hydronephrosis and proximal hydroureter probably due to low density obstructing calculus i n the proximal left ureter. Sigmoid diverticulosis without diverticulitis.
[2020-02-26] MEDS ORDERED: KETOROLAC 30 MG/ML 1 ML VIAL IVP STA (15:13)
[2020-02-26 15:59] LABS: Appearance,Urine Cloudy (Clear); Bilirubin,Urine Negative (Negative); Blood,Urine Moderate (Negative); Color,Urine Light Yellow; Glucose,Urine (UA) Negative (Negative); Ketones,Urine Negative (Negative); Leukocyte Esterase,Urine Large (Negative); Nitrite,Urine Positive (Negative); PH, Urine 7.5 (5.0-8.0); Protein,Urine Trace (Negative); RBC,Urine 10 /hpf (0-5); Squamous Epithelial Cell,Urine 1 /hpf (0-4); Urobilinogen,Urine <2.0 mg/dL (<2.0); WBC,Urine >182 /hpf (0-5)
[2020-02-26] MEDS ORDERED: cefTRIAXone IN SWFI 1,000 MG/10 ML SYRINGE IVP STA (16:12)
[2020-02-26] MEDS: SODIUM CHLORIDE 0.9% 1,000 ML IV SCH (16:41)
[2020-02-26] MEDS ORDERED: HYDROmorphone 1 MG/ML 1 ML SYRINGE IVP PRN (17:24)
[2020-02-26] MEDS ORDERED: ONDANSETRON 4 MG/2 ML VIAL IVP PRN (17:24)
[2020-02-26] MEDS ORDERED: NALOXONE 0.4 MG/ML 1 ML VIAL IV PRN (17:24)
[2020-02-26] MEDS ORDERED: IBUPROFEN 400 MG TAB PO PRN (17:24)
[2020-02-26] MEDS: ACETAMINOPHEN TAB 325 MG TAB PO PRN (19:15)
--- NOTE | 2020-02-26 19:19 | P.GSHP ---
History of Present Illness H&P Date: 02/26/20 This is a 79-year-old female who awakened early this morning with severe abdominal pain. It worsened as a morning when on such that she ended up in the emergency room. In the emergency room her urinalysis looked infected however a computed tomography scan for the abdominal pain showed left-sided hydronephrosis to a probable ureteral stone. On the emergency room she had several attempts at trying to control her pain but after several hours with there were unable to do so that she was admitted to the hospital under my service for continued IV fluids and narcotics and evaluation. This is the patient's first stone. She has not had blood in the urine other than with her bladder tumor resected in [place] several years ago. She is been followed in our office by , the last visit a few months ago. She had an anterior repair by Dr. Sierra last month. She has no fever or chills. Her white count was mildly elevated at 14,000. I reviewed the computed tomography scan and there is left hydroureteronephrosis. It is difficult whether this is a there is a low-density stone in the mid to proximal left ureter or whether there is a stone below the iliac vessels on the left side. - Constitutional Constitutional: Denies chills, Denies fever - EENT Eyes: denies blurred vision, denies pain Ears, nose, mouth and throat: Denies headache, Denies sore throat - Cardiovascular Cardiovascular: Denies chest pain, Denies shortness of breath - Respiratory Respiratory: Denies cough, Denies 7 - Gastrointestinal Gastrointestinal: Denies abdominal pain, Denies diarrhea, Denies nausea, Denies vomiting - Genitourinary (Female) Genitourinary: Denies dysuria, Denies hematuria - Genitourinary (Male) Genitourinary: Denies dysuria, Denies hematuria - Musculoskeletal Musculoskeletal: Denies myalgias - Integumentary Integumentary: Denies pruritus, Denies rash - Neurological Neurological: Denies numbness, Denies weakness - Psychiatric Psychiatric: Denies anxiety, Denies depression - Endocrine Endocrine: Denies fatigue, Denies weight change Past Medical History Past Medical History: COPD, Hyperlipidemia, Pulmonary Embolus (PE) Additional Past Medical History / Comment(s): Patient states that she has history of Pulmonary Embolism about 6 years ago. She was placed on Coumadin and monitored for 6 months and then taken off Coumadin at that time. History of Any Multi-Drug Resistant Organisms: None Reported Past Surgical History: Hysterectomy Additional Past Surgical History / Comment(s): colonoscopy, cyctocele repair 02/08/2020 Past Anesthesia/Blood Transfusion Reactions: No Reported Reaction Past Psychological History: No Psychological Hx Reported Smoking Status: Current every day smoker Past Alcohol Use History: Occasional Past Drug Use History: None Reported - Past Family History Father Family Medical History: Myocardial Infarction ([place]) Mother Family Medical History: No Reported History Medications and Allergies Home Medications Medication Instructions Recorded Confirmed Type Rosuvastatin Calcium [Crestor] 40 mg PO HS 08/31/17 02/26/20 History Acetaminophen Tab [Tylenol] 650 mg PO ONCE PRN 02/26/20 02/26/20 History Latanoprost/Pf [Latanoprost 0.005% 1 drop BOTH EYES HS 02/26/20 02/26/20 History Eye Drop] Timolol 0.5% Ophth Soln [Timoptic 1 drop BOTH EYES BID 02/26/20 02/26/20 History 0.5% Ophth Soln] diphenhydrAMINE [Benadryl] 50 mg PO HS 02/26/20 02/26/20 History Allergies Allergy/AdvReac Type Severity Reaction Status Date / Time Sulfa (Sulfonamide Allergy Severe Rash/Hives Verified 02/26/20 17:10 Antibiotics) Surgical - Exam Vital Signs Temp Pulse Resp BP Pulse Ox 98.1 F 70 18 160/70 97 02/26/20 13:27 02/26/20 13:27 02/26/20 13:27 02/26/20 13:27 02/26/20 13:27 - General Mild distress well developed, well nourished - Eyes PERRL - ENT no hearing loss - Neck trachea midline - Respiratory normal expansion, normal respiratory effort - Cardiovascular Rhythm: regular - Abdomen Mildly tender Abdomen: soft - Integumentary no rash, no growths - Neurologic normal coordination, normal sensation - Musculoskeletal normal posture - Psychiatric oriented to time, oriented to person, oriented to place, speech is normal, memory intact Results - Labs 02/26/20 14:09 02/26/20 14:09 Abnormal Lab Results - Last 24 Hours (Table) 02/26/20 02/26/20 02/26/20 Range/Units 14:09 14:09 14:09 WBC 15.8 H (3.8-10.6) k/uL Neutrophils # 13.3 H (1.3-7.7) k/uL APTT 21.2 L (22.0-30.0) sec BUN 19 H (7-17) mg/dL Glucose 143 H (74-99) mg/dL Urine Appearance (Clear) Ur Specific [place] (1.001-1.035) Urine Protein (Negative) Urine Blood (Negative) Urine Nitrite (Negative) Ur Leukocyte Esterase (Negative) Urine RBC (0-5) /hpf Urine WBC (0-5) /hpf 02/26/20 Range/Units 15:38 WBC (3.8-10.6) k/uL Neutrophils # (1.3-7.7) k/uL APTT (22.0-30.0) sec BUN (7-17) mg/dL Glucose (74-99) mg/dL Urine Appearance Cloudy H (Clear) Ur Specific [place] 1.040 H (1.001-1.035) Urine Protein Trace H (Negative) Urine Blood Moderate H (Negative) Urine Nitrite Positive H (Negative) Ur Leukocyte Esterase Large H (Negative) Urine RBC 10 H (0-5) /hpf Urine WBC >182 H (0-5) /hpf Diabetes panel 02/26/20 Range/Units 14:09 Sodium 137 (137-145) mmol/L Potassium 4.8 (3.5-5.1) mmol/L Chloride 104 (98-107) mmol/L Carbon Dioxide 23 (22-30) mmol/L BUN 19 H (7-17) mg/dL Creatinine 0.83 (0.52-1.04) mg/dL Glucose 143 H (74-99) mg/dL Calcium 9.4 (8.4-10.2) mg/dL AST 33 (14-36) U/L ALT 30 (4-34) U/L Alkaline Phosphatase 101 (38-126) U/L Total Protein 7.0 (6.3-8.2) g/dL Albumin 4.5 (3.5-5.0) g/dL Calcium panel 02/26/20 Range/Units 14:09 Calcium 9.4 (8.4-10.2) mg/dL Albumin 4.5 (3.5-5.0) g/dL Pituitary panel 02/26/20 Range/Units 14:09 Sodium 137 (137-145) mmol/L Potassium 4.8 (3.5-5.1) mmol/L Chloride 104 (98-107) mmol/L Carbon Dioxide 23 (22-30) mmol/L BUN 19 H (7-17) mg/dL Creatinine 0.83 (0.52-1.04) mg/dL Glucose 143 H (74-99) mg/dL Calcium 9.4 (8.4-10.2) mg/dL Adrenal panel 02/26/20 Range/Units 14:09 Sodium 137 (137-145) mmol/L Potassium 4.8 (3.5-5.1) mmol/L Chloride 104 (98-107) mmol/L Carbon Dioxide 23 (22-30) mmol/L BUN 19 H (7-17) mg/dL Creatinine 0.83 (0.52-1.04) mg/dL Glucose 143 H (74-99) mg/dL Calcium 9.4 (8.4-10.2) mg/dL Total Bilirubin 0.6 (0.2-1.3) mg/dL AST 33 (14-36) U/L ALT 30 (4-34) U/L Alkaline Phosphatase 101 (38-126) U/L Total Protein 7.0 (6.3-8.2) g/dL Albumin 4.5 (3.5-5.0) g/dL - Imaging CT scan - abdomen: report reviewed, image reviewed CT scan - pelvis: report reviewed, image reviewed Assessment and Plan Assessment: Impression: Left-sided hydroureteronephrosis with acute ureteral colic consistent with ureteral calculus. Probable left ureteral calculus on computed tomography scan. Possible urinary infection versus tamponade vaginal fluid from recent anterior repair. Recommendations: The patient urine is been cultured. She's been placed on IV antibiotics. She's given IV fluids and narcotics. We'll reassess in the morning and decide whether left ureteral manipulation will be required. Time with Patient: Greater than 30
[2020-02-26] MEDS: ATORVASTATIN 80 MG TAB PO SCH (20:59)
[2020-02-26] MEDS: diphenhydrAMINE 25 MG CAP PO SCH (20:59)
[2020-02-26] MEDS: TIMOLOL 0.5% OPHTH DROPS 5 ML BTL BOTH EYES SCH (20:59)
[2020-02-26] MEDS: LATANOPROST 0.005% OPHTH DROPS 2.5 ML BTL BOTH EYES SCH (20:59)
[2020-02-26] MEDS ORDERED: SODIUM CHLORIDE 0.9% 500 ML 500 ML IV ONE (22:32)
--- NOTE | 2020-02-26 22:41 | P.PN ---
Subjective Progress Note Date: 02/26/20 The patient was admitted with left hydro due to a stone with a uti Her blood pressure just dropped to 89 ystolic with a low grade fever Her wbc n admission was 14.6. In light of that i will place a double j catheter left to accelrate the recouperation and relieve the pyonephrosis emergently tonight Objective - Vital Signs Vital signs: Vital Signs Temp 99.5 F 02/26/20 22:13 Pulse 98 02/26/20 22:13 Resp 16 02/26/20 22:13 BP 89/54 02/26/20 22:13 Pulse Ox 90 L 02/26/20 22:13 Intake & Output 02/26/20 02/26/20 02/27/20 06:59 18:59 06:59 Intake Total 1590 Balance 1590 Weight 65.317 kg 65.317 kg Intake: Oral 1590 Other: # Voids 1 - Labs CBC & Chem 7: 02/26/20 14:09 02/26/20 14:09 Labs: Abnormal Lab Results - Last 24 Hours (Table) 02/26/20 02/26/20 02/26/20 Range/Units 14:09 14:09 14:09 WBC 15.8 H (3.8-10.6) k/uL Neutrophils # 13.3 H (1.3-7.7) k/uL APTT 21.2 L (22.0-30.0) sec BUN 19 H (7-17) mg/dL Glucose 143 H (74-99) mg/dL Urine Appearance (Clear) Ur Specific [place] (1.001-1.035) Urine Protein (Negative) Urine Blood (Negative) Urine Nitrite (Negative) Ur Leukocyte Esterase (Negative) Urine RBC (0-5) /hpf Urine WBC (0-5) /hpf 02/26/20 Range/Units 15:38 WBC (3.8-10.6) k/uL Neutrophils # (1.3-7.7) k/uL APTT (22.0-30.0) sec BUN (7-17) mg/dL Glucose (74-99) mg/dL Urine Appearance Cloudy H (Clear) Ur Specific [place] 1.040 H (1.001-1.035) Urine Protein Trace H (Negative) Urine Blood Moderate H (Negative) Urine Nitrite Positive H (Negative) Ur Leukocyte Esterase Large H (Negative) Urine RBC 10 H (0-5) /hpf Urine WBC >182 H (0-5) /hpf
[2020-02-26] MEDS ORDERED: PROPOFOL 10 MG/ML 20 ML VIAL IV ONE (23:46)
[2020-02-26] MEDS ORDERED: fentaNYL (PF) 50 MCG/ML 2 ML AMP ONE (23:46)
[2020-02-26] MEDS ORDERED: MIDAZOLAM 2 MG/2 ML VIAL ONE (23:46)
--- NOTE | 2020-02-27 00:16 | P.OP ---
Date of Procedure: 02/27/20 Preoperative Diagnosis: Left ureteral obstruction secondary to calculus, urinary tract infection/pyelonephrosis Postoperative Diagnosis: Same Procedure(s) Performed: Cystoscopy with placement of double-J catheter left 6 x 24 Anesthesia: MAC Surgeon: Alli Talbert Estimated Blood Loss (ml): 0 Pathology: none sent Condition: stable Disposition: PACU Indications for Procedure: The patient is 79. She is admitted with ureteral obstruction due to a stone, pyonephrosis and a urinary tract infection. She became septic this evening as her blood pressure dropped to 89 and her temperature went a 99.7. Her white count was 14.5. I have [facility] Description of Procedure: The patient is brought to the operating suite. She's placed on the operating table supine position. She's given IV sedation. She's placed lithotomy position with sterile prep and drape. Cystoscopy identifies infected looking urine and an infected floor the bladder. An 035 wires passed up the left ureter into the renal pelvis. Over the wires passed a 6 x 24 double-J catheter. Purulent urine drained out of this. The stent coils in the left renal pelvis and the bladder. the bladder is drained and the patient's awakened and returned recovery in good condition Impression successful placement double-J catheter to accelerate recuperation of the left pyelonephrosis. The patient will be closely monitored. The stone will be removed at a later date.
[2020-02-27] MEDS ORDERED: ALBUTEROL NEBULIZED 2.5 MG/3 ML INHALATION ONE (00:18)
[2020-02-27] MEDS: ACETAMINOPHEN TAB 325 MG TAB PO PRN (03:48)
[2020-02-27 04:30] LABS: Albumin 3.1 g/dL (3.5-5.0); Calcium 7.3 mg/dL (8.4-10.2); HCT 38.2 % (34.0-46.0); HGB 12.8 gm/dL (11.4-16.0); MCH 31.8 pg (25.0-35.0); MCHC 33.4 g/dL (31.0-37.0); MCV 95.4 fL (80.0-100.0); Mean Platelet Volume 8.5; Platelet Count 177 k/uL (150-450); RBC 4.01 m/uL (3.80-5.40); RDW 12.7 % (11.5-15.5); Total Bilirubin 0.5 mg/dL (0.2-1.3); Total Protein 5.5 g/dL (6.3-8.2); WBC 23.2 k/uL (3.8-10.6)
[2020-02-27] MEDS ORDERED: SODIUM CHLORIDE 0.9% 500 ML 500 ML IV ONE ×2 (05:21→06:07)
--- NOTE | 2020-02-27 05:55 | FL ---
FLUOROSCOPY 18 seconds of fluoroscopy time were utilized during left double-J stent placement. 1 images document the procedure.
[2020-02-27 06:10] LABS: Band Neutrophils % 29 %; Lymphocytes # (M) 0.93 k/uL (1.0-4.8); Metamyelocytes # (M) 0.23 k/uL (0); Metamyelocytes % 1 %; Monocytes # (M) 1.16 k/uL (0-1.0); Neutrophils % (M) 62 %; Nucleated Red Blood Cells 0 /100 WBC (0-0); Total Cells Counted 200
[2020-02-27] MEDS: SODIUM CHLORIDE 0.9% 1,000 ML IV SCH ×3 (06:10→23:56)
[2020-02-27 06:12] LABS: Anisocytosis (M) Present; Polychromasia Present
[2020-02-27 06:16] LABS: Toxic Vacuolation Present
[2020-02-27 06:17] LABS: Large Platelets Present
[2020-02-27 07:23] LABS: Glucose,Whole Blood 95 mg/dL (75-99)
[2020-02-27] MEDS: TIMOLOL 0.5% OPHTH DROPS 5 ML BTL BOTH EYES SCH ×2 (08:07→20:18)
[2020-02-27] MEDS ORDERED: SODIUM CHLORIDE 0.9% 1,000 ML IV ONE (08:41)
[2020-02-27] MEDS: PANTOPRAZOLE 40 MG/10 ML VIAL IVP SCH (10:43)
[2020-02-27] MEDS: ENOXAPARIN 40 MG/0.4 ML SYRINGE SQ SCH (10:43)
--- NOTE | 2020-02-27 12:05 | P.CNPUL ---
History of Present Illness Consult date: 02/27/20 Requesting physician: Alli Talbert Reason for consult: other (Urosepsis) Chief complaint: Abdominal pain History of present illness: This is a 79-year-old female with no significant medical history except for recent anterior repair by Dr. Sierra last month, patient was awakened early yesterday with severe abdominal pain. In the ER, she was noted to have infected urine. CT of the abdomen and pelvis showed left-sided hydronephrosis and probable ureteral stone. Patient was given pain medications, and she was admitted to the hospital for continued IV fluids, and remains on narcotics. Seen by urology on consultation, and last night the patient developed hypotension and clinical picture of sepsis from her urinary tract infection/pyelonephritis. Hence the patient underwent cystoscopy and placement of a double J catheter on the left side. Considering the patient had hypotension requiring fluids but did not require any pressors. Patient was transferred to the ICU, and was asked to see her on consultation. Patient received a total of 4 L of IV fluids, blood pressure is marginal, patient is denying being in any distress. Her blood pressure at the time I was evaluating the patient was 87/55 however before she was stressed to the ICU her blood pressure was as low as 68 systolic. Patient was also noted to have a temp of 100.7. Patient had no cough, no wheezing no shortness of breath, no nausea no vomiting or abdominal pain has resolved. Denies any dysuria frequency urgency or hematuria. Review of Systems Constitutional: Negative HEENT: Negative Cardiac: Negative Pulmonary: Negative GI: Abdominal pain secondary to left pyelonephritis. Genitourinary: As noted in HPI. Musculoskeletal: Negative Skin: Negative Neurologic: Negative Psychiatric: Negative Hematologic: Negative Past Medical History Past Medical History: Hyperlipidemia, Pulmonary Embolus (PE) Additional Past Medical History / Comment(s): Patient states that she has history of Pulmonary Embolism about 9 years ago. She was placed on Coumadin and monitored for 6 months and then taken off Coumadin at that time. History of Any Multi-Drug Resistant Organisms: None Reported Past Surgical History: Hysterectomy Additional Past Surgical History / Comment(s): colonoscopy, cyctocele repair 02/08/2020, bladder tumor removed years ago in [place] Past Anesthesia/Blood Transfusion Reactions: No Reported Reaction Past Psychological History: No Psychological Hx Reported Smoking Status: Former smoker Past Alcohol Use History: Occasional Additional Past Alcohol Use History / Comment(s): drinks wine occasionally not every day, smokes 6 cigarrettes a day Past Drug Use History: None Reported - Past Family History Father Family Medical History: Myocardial Infarction (SC) Mother Family Medical History: No Reported History Medications and Allergies Home Medications Medication Instructions Recorded Confirmed Type Rosuvastatin Calcium [Crestor] 40 mg PO HS 08/31/17 02/26/20 History Acetaminophen Tab [Tylenol] 650 mg PO ONCE PRN 02/26/20 02/26/20 History Latanoprost/Pf [Latanoprost 0.005% 1 drop BOTH EYES HS 02/26/20 02/26/20 History Eye Drop] Timolol 0.5% Ophth Soln [Timoptic 1 drop BOTH EYES BID 02/26/20 02/26/20 History 0.5% Ophth Soln] diphenhydrAMINE [Benadryl] 25 mg PO HS 02/26/20 02/26/20 History Allergies Allergy/AdvReac Type Severity Reaction Status Date / Time Sulfa (Sulfonamide Allergy Severe Rash/Hives Verified 02/26/20 17:10 Antibiotics) Physical Exam Vitals: Vital Signs Temp Pulse Pulse Pulse Resp BP BP 02/27/20 11:00 69 23 101/76 02/27/20 10:45 74 15 84/52 02/27/20 10:30 69 22 90/47 02/27/20 10:15 69 32 H 86/50 02/27/20 10:00 70 21 104/42 02/27/20 09:45 76 20 84/48 02/27/20 09:30 69 17 96/55 02/27/20 09:15 80 26 H 94/52 02/27/20 09:00 74 28 H 99/53 02/27/20 08:45 84 28 H 87/55 02/27/20 08:30 71 19 81/47 02/27/20 08:15 71 19 86/51 02/27/20 08:00 98 F 74 22 74/45 02/27/20 07:45 70 18 78/43 02/27/20 07:30 75 14 83/49 02/27/20 07:18 27 H 02/27/20 06:39 98.4 F 74 20 73/48 02/27/20 06:06 77 83/48 07/26/20 05:15 82/48 02/27/20 05:09 100.7 F H 87 20 77/39 02/27/20 05:07 99.2 F 84 20 68/38 02/27/20 03:44 100.4 F H 90/55 02/27/20 03:11 91 18 99/50 02/27/20 02:41 96 18 114/67 02/27/20 02:11 90 18 117/68 02/27/20 01:56 92 20 108/62 02/27/20 01:41 89 20 104/62 02/27/20 01:26 93 20 97/48 02/27/20 01:18 68 92/55 02/27/20 01:15 98.8 F 93 18 68/41 02/27/20 01:11 98.6 F 95 17 75/37 02/27/20 00:54 94 18 103/51 02/27/20 00:43 97 18 106/53 02/27/20 00:30 95 18 101/50 02/27/20 00:17 98.9 F 100 16 107/55 02/26/20 23:41 99.5 F 97 24 02/26/20 23:25 99.5 F 97 24 02/26/20 23:05 99.5 F 95 24 02/26/20 22:13 99.5 F 98 16 02/26/20 19:00 99.7 F H 103 H 20 02/26/20 17:14 97 24 155/52 02/26/20 14:32 78 20 152/60 02/26/20 13:27 98.1 F 70 18 160/70 BP Pulse Ox 02/27/20 11:00 95 02/27/20 10:45 95 02/27/20 10:30 95 02/27/20 10:15 95 02/27/20 10:00 95 02/27/20 09:45 02/27/20 09:30 02/27/20 09:15 02/27/20 09:00 02/27/20 08:45 02/27/20 08:30 95 02/27/20 08:15 95 02/27/20 08:00 95 02/27/20 07:45 95 02/27/20 07:30 95 02/27/20 07:18 95 02/27/20 06:39 96 02/27/20 06:06 02/27/20 05:15 02/27/20 05:09 95 02/27/20 05:07 95 02/27/20 03:44 02/27/20 03:11 95 02/27/20 02:41 95 02/27/20 02:11 96 02/27/20 01:56 95 02/27/20 01:41 95 02/27/20 01:26 94 L 02/27/20 01:18 93 L 02/27/20 01:15 95 02/27/20 01:11 94 L 02/27/20 00:54 100 02/27/20 00:43 100 02/27/20 00:30 100 02/27/20 00:17 95 02/26/20 23:41 85/50 96 02/26/20 23:25 88/50 97 02/26/20 23:05 90/52 96 02/26/20 22:13 89/54 90 L 02/26/20 19:00 114/52 92 L 02/26/20 17:14 93 L 02/26/20 14:32 98 02/26/20 13:27 97 Intake and Output 02/26/20 02/27/20 02/27/20 22:59 06:59 14:59 Intake Total 1590 2325 1500 Output Total 225 340 Balance 1590 2100 1160 Intake: Intake, IV Titration 2325 1500 Amount Sodium Chloride 0.9% 1, 825 450 000 ml @ 150 mls/hr IV . Q6H40M [facility] Rx#:[id number] Sodium Chloride 0.9% 1, 1000 000 ml @ 999 mls/hr IV . Q1H1M [facility] Rx#:[id number] Sodium Chloride 0.9% 500 500 ml 500 ml @ 999 mls/hr IV .Q31M [facility] Rx#:[id number] Sodium Chloride 0.9% 500 500 ml 500 ml @ 999 mls/hr IV .Q31M [facility] Rx#:[id number] Sodium Chloride 0.9% 500 500 ml 500 ml @ 999 mls/hr IV .Q31M [facility] Rx#:[id number] cefTRIAXone 1 gm In 50 Sodium Chloride 0.9% 50 ml @ 100 mls/hr IVPB Q24HR [facility] Rx#:[id number] Oral 1590 Output: Urine 225 340 Estimated Blood Loss 0 Other: Voiding Method Toilet Indwelling Catheter # Voids 1 1 Weight 65.317 kg 65.317 kg Physical Exam: Revealed 79-year-old female in no distress. Head: Atraumatic, normocephalic. HEENT:[Neck is supple.] [No neck masses.] [No thyromegaly.] [No JVD.] PERRLA, EOMI, no icterus, no stridor. Chest: [Clear throughout, no crackles, no rhonchi, no wheezes.] Cardiac Exam: [Normal S1 and S2, no S3 gallop, no murmur.] Abdomen: [Soft, nontender, no megaly, no rebound, no guarding, normal bowel sounds.] Extremities: [No clubbing, no edema, no cyanosis.] Good pulses bilaterally. Neurological Exam: [No focal neurologic deficit.] Alert and oriented 3. Psychiatric: Normal mood affect and normal mental status examination. Skin: No rashes. Results - Laboratory Findings CBC and BMP: 02/27/20 03:56 02/27/20 03:56 PT/INR, D-dimer PT 9.7 sec (9.0-12.0) 02/26/20 14:09 INR 0.9 (<1.2) 02/26/20 14:09 Abnormal lab findings: Abnormal Labs 02/26/20 02/26/20 02/26/20 14:09 14:09 14:09 WBC 15.8 H Neutrophils # 13.3 H Neutrophils # (Manual) Lymphocytes # (Manual) Monocytes # (Manual) Metamyelocytes # (Man) APTT 21.2 L Sodium Carbon Dioxide BUN 19 H Glucose 143 H Calcium AST Total Protein Albumin Urine Appearance Ur Specific [place] Urine Protein Urine Blood Urine Nitrite Ur Leukocyte Esterase Urine RBC Urine WBC 02/26/20 02/27/20 02/27/20 15:38 03:56 03:56 WBC 23.2 H Neutrophils # Neutrophils # (Manual) 21.10 H Lymphocytes # (Manual) 0.93 L Monocytes # (Manual) 1.16 H Metamyelocytes # (Man) 0.23 H APTT Sodium 134 L Carbon Dioxide 19 L BUN Glucose Calcium 7.3 L AST 37 H Total Protein 5.5 L Albumin 3.1 L Urine Appearance Cloudy H Ur Specific [place] 1.040 H Urine Protein Trace H Urine Blood Moderate H Urine Nitrite Positive H Ur Leukocyte Esterase Large H Urine RBC 10 H Urine WBC >182 H - Diagnostic Findings Additional studies: Results of the CT of the abdomen and pelvis were reviewed. Assessment and Plan Assessment: Impression: Acute left sided hydroureteronephrosis and pyelonephritis secondary to ureteric calculus. Severe sepsis secondary to pyelonephritis. Patient is responding to fluids, and so far did not require any pressors. Status post cystoscopy with placement of a double-J catheter/left. Postoperative day #1. History of pulmonary embolism, treated about 6 years ago, and she was on Coumadin for 6 months. Recommendation: Continue to monitor the patient in the ICU. Continue antibiotics, presently on Rocephin. Continue IV fluids, if remains hypotensive may consider starting the patient on norepinephrine. GI and DVT prophylaxis will be initiated. Awaiting final report on blood cultures and urine cultures. We'll continue to follow while the patient is in the ICU with the admitting service/urology. Time with Patient: Greater than 30
--- NOTE | 2020-02-27 14:05 | P.PN ---
Subjective Progress Note Date: 02/27/20 The patient underwent cystoscopy and placement of a double-J catheter left yesterday for an obstructing stone, urinary tract infection with sepsis/pyelonephrosis she had hypotension overnight. I placed in the intensive care unit. She got a couple of boluses of IV fluids and has responded appropriately. Her vital signs are stable off pressor medications. She is afebrile. From a urologic standpoint she can go to the floor. I suspect she'll be had a day to 2. I will remove her stone manipulation and stent removal in a couple of weeks. This is been discussed with the patient and her son. Objective - Vital Signs Vital signs: Vital Signs Temp 98 F 02/27/20 08:00 Pulse 69 02/27/20 11:00 Resp 23 02/27/20 11:00 BP 101/76 02/27/20 11:00 Pulse Ox 95 02/27/20 11:00 Intake & Output 02/26/20 02/27/20 02/27/20 18:59 06:59 18:59 Intake Total 3915 1650 Output Total 225 515 Balance 3690 1135 Weight 65.317 kg 65.317 kg Intake: Intake, IV Titration 2325 1650 Amount Sodium Chloride 0.9% 1, 825 600 000 ml @ 150 mls/hr IV . Q6H40M [facility] Rx#:[id number] Sodium Chloride 0.9% 1, 1000 000 ml @ 999 mls/hr IV . Q1H1M [facility] Rx#:[id number] Sodium Chloride 0.9% 500 500 ml 500 ml @ 999 mls/hr IV .Q31M [facility] Rx#:[id number] Sodium Chloride 0.9% 500 500 ml 500 ml @ 999 mls/hr IV .Q31M [facility] Rx#:[id number] Sodium Chloride 0.9% 500 500 ml 500 ml @ 999 mls/hr IV .Q31M [facility] Rx#:[id number] cefTRIAXone 1 gm In 50 Sodium Chloride 0.9% 50 ml @ 100 mls/hr IVPB Q24HR [facility] Rx#:[id number] Oral 1590 Output: Urine 225 515 Estimated Blood Loss 0 Other: Voiding Method Toilet Indwelling Catheter # Voids 1 - Labs CBC & Chem 7: 02/27/20 03:56 02/27/20 03:56 Labs: Abnormal Lab Results - Last 24 Hours (Table) 02/26/20 02/26/20 02/26/20 Range/Units 14:09 14:09 14:09 WBC 15.8 H (3.8-10.6) k/uL Neutrophils # 13.3 H (1.3-7.7) k/uL Neutrophils # (Manual) (1.3-7.7) k/uL Lymphocytes # (Manual) (1.0-4.8) k/uL Monocytes # (Manual) (0-1.0) k/uL Metamyelocytes # (Man) (0) k/uL APTT 21.2 L (22.0-30.0) sec Sodium (137-145) mmol/L Carbon Dioxide (22-30) mmol/L BUN 19 H (7-17) mg/dL Glucose 143 H (74-99) mg/dL Calcium (8.4-10.2) mg/dL AST (14-36) U/L Total Protein (6.3-8.2) g/dL Albumin (3.5-5.0) g/dL Urine Appearance (Clear) Ur Specific [place] (1.001-1.035) Urine Protein (Negative) Urine Blood (Negative) Urine Nitrite (Negative) Ur Leukocyte Esterase (Negative) Urine RBC (0-5) /hpf Urine WBC (0-5) /hpf 02/26/20 02/27/20 02/27/20 Range/Units 15:38 03:56 03:56 WBC 23.2 H (3.8-10.6) k/uL Neutrophils # (1.3-7.7) k/uL Neutrophils # (Manual) 21.10 H (1.3-7.7) k/uL Lymphocytes # (Manual) 0.93 L (1.0-4.8) k/uL Monocytes # (Manual) 1.16 H (0-1.0) k/uL Metamyelocytes # (Man) 0.23 H (0) k/uL APTT (22.0-30.0) sec Sodium 134 L (137-145) mmol/L Carbon Dioxide 19 L (22-30) mmol/L BUN (7-17) mg/dL Glucose (74-99) mg/dL Calcium 7.3 L (8.4-10.2) mg/dL AST 37 H (14-36) U/L Total Protein 5.5 L (6.3-8.2) g/dL Albumin 3.1 L (3.5-5.0) g/dL Urine Appearance Cloudy H (Clear) Ur Specific [place] 1.040 H (1.001-1.035) Urine Protein Trace H (Negative) Urine Blood Moderate H (Negative) Urine Nitrite Positive H (Negative) Ur Leukocyte Esterase Large H (Negative) Urine RBC 10 H (0-5) /hpf Urine WBC >182 H (0-5) /hpf Microbiology - Last 24 Hours (Table) 02/26/20 15:38 Urine Culture - Preliminary Urine,Voided
[2020-02-27] MEDS: LATANOPROST 0.005% OPHTH DROPS 2.5 ML BTL BOTH EYES SCH (20:18)
[2020-02-27] MEDS: diphenhydrAMINE 25 MG CAP PO SCH (20:18)
[2020-02-27] MEDS: ATORVASTATIN 80 MG TAB PO SCH (20:18)
[2020-02-27] MEDS: HYDROmorphone 0.5 MG/0.5 ML SYRINGE IVP PRN ×2 (20:29→23:55)
[2020-02-28 05:06] LABS: Basophils # (A) 0.1 k/uL (0-0.2); Basophils % (A) 0 %; Eosinophils # (A) 0.2 k/uL (0-0.7); Eosinophils % (A) 2 %; HCT 32.4 % (34.0-46.0); HGB 10.9 gm/dL (11.4-16.0); Lymphocytes % (A) 7 %; MCHC 33.7 g/dL (31.0-37.0); Mean Platelet Volume 8.9; Monocytes # (A) 0.6 k/uL (0-1.0); Monocytes % (A) 5 %; Neutrophils # (A) 11.7 k/uL (1.3-7.7); Neutrophils % (A) 85 %; Platelet Count 132 k/uL (150-450); RBC 3.41 m/uL (3.80-5.40); RDW 12.8 % (11.5-15.5); WBC 13.8 k/uL (3.8-10.6)
[2020-02-28 05:30] LABS: African American GFR (CKD) >90 (>60 ml/min/1.73 sqM); Anion Gap 5 mmol/L; Blood Urea Nitrogen 12 mg/dL (7-17); Carbon Dioxide 16 mmol/L (22-30); Chloride 112 mmol/L (98-107); Glucose 80 mg/dL (74-99); Non-African American GFR(CKD) 83 (>60 ml/min/1.73 sqM); Potassium 3.8 mmol/L (3.5-5.1); Sodium 133 mmol/L (137-145)
--- NOTE | 2020-02-28 07:58 | XR ---
EXAMINATION TYPE: XR chest 1V portable DATE OF EXAM: 02/28/2020 COMPARISON: 09/03/2017 INDICATION: Chest pain, cough TECHNIQUE: Single frontal view of the chest is obtained. FINDINGS: The heart size is normal. The pulmonary vasculature is normal. There are scattered increased lung markings within the mid and lower lung pedro. Correlate for atypi jarod pneumonia. Pulmonary edema and other infectious etiologies could be considered. IMPRESSION: 1. Mild left mid and lower lung field and right lower lobe infiltrates which are nonspecific. Follow- up is recommended.
[2020-02-28] MEDS: ENOXAPARIN 40 MG/0.4 ML SYRINGE SQ SCH (09:08)
[2020-02-28] MEDS: PANTOPRAZOLE 40 MG/10 ML VIAL IVP SCH (09:08)
[2020-02-28] MEDS: SODIUM CHLORIDE 0.9% 1,000 ML IV SCH (09:09)
[2020-02-28] MEDS: TIMOLOL 0.5% OPHTH DROPS 5 ML BTL BOTH EYES SCH ×2 (09:10→20:56)
[2020-02-28] MEDS: HYDROmorphone 0.5 MG/0.5 ML SYRINGE IVP PRN ×2 (10:19→20:55)
--- NOTE | 2020-02-28 11:27 | PN ---
PROGRESS NOTE PULMONARY/CRITICAL CARE PROGRESS NOTE: DATE OF SERVICE: 02/28/2020 This is a 79-year-old female with no past medical history, save for recent anterior repair by Dr. Sierra over a month ago. The patient apparently presented to the hospital on February 25 with left hydronephrosis, severe abdominal pain, urinary tract infection, and kidney stones. The patient did have a cystoscopy performed with a left-sided double-J stent. Currently, she is on 4 L nasal cannula and saline at 150 mL an hour. She does have gram-negative bacilli in the urine. Rocephin was given IV. She apparently came to the ICU on the because of low blood pressure. Currently doing much better. Not on any pressor. She did have elevated temperature initially 100.7. Her systolic blood pressure was 87. She did receive IV fluids. She did receive 4 L of IV fluids. Currently, as mentioned, she is resting comfortably. Her current vital signs are reviewed. Temperature is 98.8, heart rate 83, respiratory rate 18, blood pressure 147/64 mean 91, 4 L saturation 94%. Appears in no acute distress. HEENT: Examination is grossly unremarkable. Nasal O2 noted. Neck is supple. Full range of motion. No adenopathy. Neck veins are flat. CARDIOVASCULAR: Examination reveals regular rhythm and rate. S1, S2 normal. No S3, S4, or murmur. LUNGS: Clear, breath sounds equal. No wheezes, rhonchi, or crackles. ABDOMEN: Soft bowel sounds are heard. EXTREMITIES: Intact. No cyanosis, clubbing, or edema. SKIN: Without rash. NEUROLOGIC: Examination is brief but nonfocal. LABS: Reviewed. White count 13.8, hemoglobin 10.9, hematocrit 32.4, platelet count 132,000. Sodium 133, potassium 3.8, chloride 112, CO2 is 16, anion gap is 5. BUN and creatinine were 12 and 0.7. Urine is very dirty appearing. The color was light yellow. It was cloudy. There was specific gravity is 1.040. There was moderate blood, positive nitrite, large positive leukocyte esterase, 10 RBCs, more than 182 WBCs. Microbiology is showing blood cultures to be negative. Urine is showing gram-negative bacilli yet to be identified. Chest x-ray shows mild left mid and lower lung field and right lower lung infiltrates. CURRENT MEDICATIONS: Reviewed. She is on Tylenol, Lipitor, Rocephin, Benadryl, Lovenox, Dilaudid, ibuprofen, eye drops, Narcan, Zofran, and Protonix. ASSESSMENT: 1. Acute left-sided hydronephrosis and pyelonephritis secondary to kidney stone, with positive urine cultures for Gram-negative bacilli, yet to be identified. 2. Severe sepsis secondary to urinary tract infection/urosepsis and pyelonephritis. 3. Status post cystoscopy with placement of a double-J catheter on the left side, postoperative day #2. 4. History of pulmonary embolism, treated about 6 years ago with Coumadin. 5. Recent anterior repair by Dr. Sierra. PLAN: Currently, the patient is stable. She is receiving Rocephin. She has gram-negative bacilli in the urine. It had not been identified as yet. The patient never required a pressor. Additional recommendations and suggestions are forthcoming. In my opinion, the patient could go to the general medical floor without telemetry. Prognosis is guarded. MMODL / IJN: [id number] /
--- NOTE | 2020-02-28 11:28 | P.PN ---
Subjective Progress Note Date: 02/28/20 No acute overnight event, patient afebrile, denies any flank pain. Her WBC is trending down. Objective - Vital Signs Vital signs: Vital Signs Temp 98.2 F 02/28/20 08:00 Pulse 94 02/28/20 08:00 Resp 25 H 02/28/20 08:00 BP 122/56 02/28/20 10:00 Pulse Ox 93 L 02/28/20 10:00 Intake & Output 02/27/20 02/28/20 02/28/20 18:59 06:59 18:59 Intake Total 2200 1950 650 Output Total 1415 1300 645 Balance 785 650 5 Weight 73.5 kg Intake: IV 1650 650 Sodium Chloride 0.9% 1, 1650 600 000 ml @ 150 mls/hr IV . Q6H40M [facility] Rx#:[id number] cefTRIAXone 1 gm In 50 Sodium Chloride 0.9% 50 ml @ 100 mls/hr IVPB Q24HR [facility] Rx#:[id number] Intake, IV Titration 2200 Amount Sodium Chloride 0.9% 1, 900 000 ml @ 150 mls/hr IV . Q6H40M [facility] Rx#:[id number] Sodium Chloride 0.9% 1, 1000 000 ml @ 999 mls/hr IV . Q1H1M [facility] Rx#:[id number] cefTRIAXone 1 gm In 300 Sodium Chloride 0.9% 50 ml @ 100 mls/hr IVPB Q24HR [facility] Rx#:[id number] Oral 300 Output: Urine 1415 1300 645 Other: Voiding Method Indwelling Catheter Indwelling Catheter Indwelling Catheter - Constitutional General appearance: Present: no acute distress - Genitourinary Genitourinary Comment(s): urine clear yellow - Labs CBC & Chem 7: 02/28/20 04:35 02/28/20 04:35 Labs: Abnormal Lab Results - Last 24 Hours (Table) 02/28/20 02/28/20 Range/Units 04:35 04:35 WBC 13.8 H (3.8-10.6) k/uL RBC 3.41 L (3.80-5.40) m/uL Hgb 10.9 L (11.4-16.0) gm/dL Hct 32.4 L (34.0-46.0) % Plt Count 132 L (150-450) k/uL Neutrophils # 11.7 H (1.3-7.7) k/uL Sodium 133 L (137-145) mmol/L Chloride 112 H (98-107) mmol/L Carbon Dioxide 16 L (22-30) mmol/L Calcium 7.0 L (8.4-10.2) mg/dL Microbiology - Last 24 Hours (Table) 02/27/20 03:56 Blood Culture - Preliminary Blood No Growth after 24 hours 02/27/20 03:56 Blood Culture - Preliminary Blood No Growth after 24 hours 02/26/20 15:38 Urine Culture - Preliminary Urine,Voided Gram Neg Bacilli Assessment and Plan Assessment: 79 yo female S/P ureteral stent placement for septic stone -F/U on urine culture -D/C [place] -Potential discharge home tomorrow
[2020-02-28] MEDS ORDERED: FUROSEMIDE 10 MG/ML 4 ML VIAL IV STA (13:20)
--- NOTE | 2020-02-28 13:35 | XR ---
EXAMINATION TYPE: XR chest 1V portable DATE OF EXAM: 02/28/2020 COMPARISON: 02/28/2020 INDICATION: Increasing shortness of breath TECHNIQUE: Single frontal view of the chest is obtained. FINDINGS: The heart size is normal. The pulmonary vasculature is prominent. Diffuse increased lung markings are present. Small left pleural effusion is present. Left lower lobe infiltrate is present. IMPRESSION: 1. Bilateral infiltrates with increasing prominence of pulmonary vascular markings. Correlate for pul monary edema. 2. Small left pleural effusion
[2020-02-28] MEDS: NICOTINE 14MG/24HR PATCH TRANSDERM SCH (13:37)
--- NOTE | 2020-02-28 14:07 | CDI ---
Documentation Clarification Form Date: 02/28/2020 01:46:05 PM From: Thais Cason RN CCDS Admit Date: 02/26/2020 05:29:00 PM Patient Name: Chrissie Bryson Visit Number: [id number] Discharge Date: ATTENTION: The Clinical Documentation Specialists (CDI) and [facility] Coding Staff appreciate your assistance in clarifying documentation. Please respond to the clarification below the line at the bottom and electronically sign. The CDI & [facility] Coding staff will review the response and follow-up if needed. Please note: Queries are made part of the Legal Health Record. If you have any questions, please contact the author of this message via ITS. Dr. Alli Talbert Severe sepsis secondary to pyelonephritis is documented in the 02/26 Consult Critical Care Management History/Risk Factors: 79-year-old female presents to the ED with severe abdominal pain. Had a a anterior repair by Dr. Sierra last month. Clinical Indicators: 02/25 LABS: Wbc: 15.8; Neutrophils: 13.3; 02/25 UA Culture: Gram Negative Bacilli 02/25 Blood cultures: No growth after 24 hours 02/25 CT ABD Left sided hydronephrosis and proximal hydroureter probably due to low density obstructing calculus in the proximal left ureter. 02/25 Vital signs on admission: B/P: 160/70; HR: 70; T: 98.1; RR: 18; SpO2: 97% room air Treatment: Antibiotics: 02/25 Rocephin IV Daily; IV Bolus: 02/25 0.9ns 1L bolus; 02/26 0.9ns 2L bolus Other: 0.9ns 150cc/hr In your professional opinion, please clarify if these findings signify one of the following conditions, whether the condition is POA, and cause, if known: Sepsis ruled out Sepsis POA Other, please specify Unable to determine SIRS Criteria (2 or more of the following may indicate SIRS): -Temperature < 96.8F (36C) or > 101.0F (38.3C) -Heart Rate > 90 bpm -Respiratory Rate > 20 breaths/min or PaCO2 < 32 mmHg -White Blood Cell Count > 12,000 or < 4,000 cells/mm3 or > 10% bands -Lactate >2.0 mmol/L (>4.0 is equivalent to septic shock) SEPSIS POA (Last Revision: November 2017) MTDD
[2020-02-28] MEDS ORDERED: IPRATROPIUM-ALBUTEROL 3 ML NEB INHALATION STA (18:03)
[2020-02-28] MEDS ORDERED: IPRATROPIUM-ALBUTEROL 3 ML NEB INHALATION PRN (18:03)
[2020-02-28] MEDS: IPRATROPIUM-ALBUTEROL 3 ML NEB INHALATION SCH ×2 (19:49→21:35)
[2020-02-28] MEDS: diphenhydrAMINE 25 MG CAP PO SCH (20:55)
[2020-02-28] MEDS: ATORVASTATIN 80 MG TAB PO SCH (20:55)
[2020-02-28] MEDS: LATANOPROST 0.005% OPHTH DROPS 2.5 ML BTL BOTH EYES SCH (20:55)
[2020-02-29] MEDS: HYDROmorphone 0.5 MG/0.5 ML SYRINGE IVP PRN ×2 (02:29→06:57)
[2020-02-29 04:28] LABS: Basophils % (A) 0 %; Eosinophils # (A) 0.4 k/uL (0-0.7); Eosinophils % (A) 3 %; HCT 32.2 % (34.0-46.0); HGB 10.3 gm/dL (11.4-16.0); Lymphocytes # (A) 1.4 k/uL (1.0-4.8); Lymphocytes % (A) 10 %; MCV 93.8 fL (80.0-100.0); Mean Platelet Volume 8.7; Monocytes # (A) 0.6 k/uL (0-1.0); Monocytes % (A) 4 %; Neutrophils # (A) 11.5 k/uL (1.3-7.7); Neutrophils % (A) 80 %; Platelet Count 141 k/uL (150-450); RBC 3.44 m/uL (3.80-5.40); RDW 13.1 % (11.5-15.5); WBC 14.4 k/uL (3.8-10.6)
[2020-02-29 05:00] LABS: African American GFR (CKD) >90 (>60 ml/min/1.73 sqM); Anion Gap 6 mmol/L; Blood Urea Nitrogen 10 mg/dL (7-17); Calcium 7.5 mg/dL (8.4-10.2); Carbon Dioxide 23 mmol/L (22-30); Chloride 104 mmol/L (98-107); Glucose 100 mg/dL (74-99); Non-African American GFR(CKD) 84 (>60 ml/min/1.73 sqM); Potassium 3.6 mmol/L (3.5-5.1); Sodium 133 mmol/L (137-145)
--- NOTE | 2020-02-29 06:27 | PN ---
PROGRESS NOTE PULMONARY/CRITICAL CARE PROGRESS NOTE: DATE OF SERVICE: February 29, 2020. This is a 79-year-old female with no significant past medical history, save for recent anterior repair by Dr. Sierra about a month ago. The patient presented to the hospital on February 25 with left-sided hydronephrosis, severe abdominal pain, urinary tract infection, and kidney stones. Her urine sampling turned out positive for Proteus mirabilis. The patient did have a cystoscopy performed with a left-sided double-J stent placed. I believe this was done by Dr. Talbert. Currently, she is on 4 L nasal cannula. She is on Rocephin as an antibiotic. The patient is doing well otherwise. Not receiving any IV fluids. She did get diuretics yesterday. Anyway, the patient is much improved. She is resting comfortably. No complaints. No respiratory issues. No blood pressure issues. No pain. PHYSICAL EXAMINATION: VITAL SIGNS: Current vital signs are reviewed. Temperature is 98, heart rate 70, respiratory rate 20, blood pressure 106/54, mean 71, 4 L saturations 95%. GENERAL: Appears in no acute distress. HEENT: Examination is grossly unremarkable. NECK: Supple. Full range of motion. There is no adenopathy, thyromegaly or neck vein distention. CARDIOVASCULAR: Examination reveals regular rhythm and rate. Heart rate 70 beats per minute. S1, S2 normal. LUNGS: Reveal a few scattered rhonchi. Some mild expiratory wheezes. No crackles. Breath sounds equal. ABDOMEN: Soft. Bowel sounds are heard. EXTREMITIES: Are intact. No cyanosis, clubbing, or edema. SKIN: Without rash. NEUROLOGIC: Examination is brief but nonfocal. LABORATORY DATA: Laboratory data includes a white count of 14.4, hemoglobin 10.3, hematocrit 32.2, platelet count 141,000. Sodium 133, potassium 3.6, chloride 104, CO2 of 23. Anion gap is 6. BUN and creatinine were 10 and 0.66. Microbiology again is showing urine positive for Proteus mirabilis on February 25. The rest of the labs look okay. MEDICATIONS: Medications are reviewed. She remains on ceftriaxone as antibiotic. She is receiving DVT prophylaxis. We did add some updrafts yesterday. ASSESSMENT: 1. Acute left-sided hydronephrosis and pyelonephritis secondary to kidney stone with positive urine cultures for Proteus mirabilis. 2. Severe sepsis secondary to urinary tract infection/urosepsis and pyelonephritis. 3. Status post cystoscopy with placement of a double-J catheter on the left side, postoperative day #3. 4. History of pulmonary embolism, treated about 6 years ago with Coumadin. 5. Recent anterior repair by Dr. Sierra. PLAN: Overall, the patient seems to be doing well. She did respond nicely to diuretics yesterday. We did add some breathing treatments. She remains on Rocephin as an antibiotic for the Proteus mirabilis. The Proteus is a sensitive to Rocephin. No additional recommendations are made. Blood pressure is stable. Respiratory status is good. We will continue to follow. Prognosis is guarded. MMODL / IJN: [id number] /
[2020-02-29] MEDS: IPRATROPIUM-ALBUTEROL 3 ML NEB INHALATION SCH ×4 (06:51→19:40)
--- NOTE | 2020-02-29 06:59 | XR ---
EXAMINATION TYPE: XR chest 1V portable DATE OF EXAM: 02/29/2020 HISTORY: Shortness of breath. COMPARISON: 02/28/2020 TECHNIQUE: Single view of the chest is submitted. FINDINGS: Demonstrated are scattered senescent parenchymal change. Persistent pulmonary venous congestion with interstitial edema. More confluent infiltrate left lower lobe with small effusion. Overall stable appearance. The heart is stable. Hilar and mediastinal structures are within normal limits. Degenerative changes are seen of the dorsal spine. IMPRESSION: 1. Persistent pulmonary venous congestion with interstitial edema. More confluent infiltrate left lo wer lobe with small effusion. Overall stable appearance.
[2020-02-29] MEDS ORDERED: POTASSIUM CHLORIDE ER 20 MEQ TAB.ER PO SCH (07:00)
[2020-02-29] MEDS: ENOXAPARIN 40 MG/0.4 ML SYRINGE SQ SCH (08:28)
[2020-02-29] MEDS: NICOTINE 14MG/24HR PATCH TRANSDERM SCH (08:28)
[2020-02-29] MEDS: PANTOPRAZOLE 40 MG/10 ML VIAL IVP SCH (08:28)
[2020-02-29] MEDS: TIMOLOL 0.5% OPHTH DROPS 5 ML BTL BOTH EYES SCH ×2 (08:29→20:21)
[2020-02-29] MEDS ORDERED: FUROSEMIDE 10 MG/ML 4 ML VIAL IV ONE (09:00)
--- NOTE | 2020-02-29 16:57 | P.PN ---
Subjective No acute overnight event, patient afebrile, denies any flank pain. still requiring oxygen Objective - Vital Signs Vital signs: Vital Signs Temp 98.1 F 02/29/20 08:00 Pulse 72 02/29/20 12:00 Resp 16 02/29/20 12:00 BP 106/54 02/29/20 08:00 Pulse Ox 92 L 02/29/20 12:00 Intake & Output 02/28/20 02/29/20 02/29/20 18:59 06:59 18:59 Intake Total 650 100 Output Total 3345 600 2200 Balance -3060 -600 -2100 Intake: IV 650 100 Sodium Chloride 0.9% 1, 600 000 ml @ 150 mls/hr IV . Q6H40M JOHN Rx#:[id number] cefTRIAXone 1 gm In 50 100 Sodium Chloride 0.9% 50 ml @ 100 mls/hr IVPB Q24HR JOHN Rx#:[id number] Output: Urine 3345 600 2200 Other: Voiding Method Bedside Commode Bedside Commode # Emeses 1 - Constitutional General appearance: Present: no acute distress - Psychiatric Psychiatric: Present: A&O x's 3 - Labs CBC & Chem 7: 02/29/20 03:46 02/29/20 11:53 Labs: Abnormal Lab Results - Last 24 Hours (Table) 02/29/20 02/29/20 Range/Units 03:46 03:46 WBC 14.4 H (3.8-10.6) k/uL RBC 3.44 L (3.80-5.40) m/uL Hgb 10.3 L (11.4-16.0) gm/dL Hct 32.2 L (34.0-46.0) % Plt Count 141 L (150-450) k/uL Neutrophils # 11.5 H (1.3-7.7) k/uL Sodium 133 L (137-145) mmol/L Glucose 100 H (74-99) mg/dL Calcium 7.5 L (8.4-10.2) mg/dL Microbiology - Last 24 Hours (Table) 02/27/20 03:56 Blood Culture - Preliminary Blood No Growth after 48 hours 02/27/20 03:56 Blood Culture - Preliminary Blood No Growth after 48 hours 02/26/20 15:38 Urine Culture - Final Urine,Voided Proteus mirabilis Assessment and Plan Assessment: 79 yo female S/P ureteral stent placement for septic stone -continue abx -will plan on discharging home once off oxygen
[2020-02-29] MEDS: ATORVASTATIN 80 MG TAB PO SCH (20:20)
[2020-02-29] MEDS: LATANOPROST 0.005% OPHTH DROPS 2.5 ML BTL BOTH EYES SCH (20:20)
[2020-02-29] MEDS: diphenhydrAMINE 25 MG CAP PO SCH (20:20)
[2020-03-01] MEDS ORDERED: PANTOPRAZOLE 40 MG TABLET PO SCH (07:30)
[2020-03-01] MEDS: ENOXAPARIN 40 MG/0.4 ML SYRINGE SQ SCH (08:47)
[2020-03-01] MEDS: TIMOLOL 0.5% OPHTH DROPS 5 ML BTL BOTH EYES SCH (08:48)
[2020-03-01] MEDS: NICOTINE 14MG/24HR PATCH TRANSDERM SCH (08:48)
[2020-03-01] MEDS ORDERED: AMOXIC-POT CLAV 875-125MG 1 EACH TAB PO SCH (09:00)
[2020-03-01] MEDS: IPRATROPIUM-ALBUTEROL 3 ML NEB INHALATION SCH ×2 (09:08→12:13)
--- NOTE | 2020-03-01 09:38 | P.PN ---
Subjective Progress Note Date: 03/01/20 The patient is in the hospital with an obstructing ureteral stone, urinary tract infection with sepsis, pyonephrosis on the left appeared a double-J catheter is placed. She required intensive care unit stay because of hypotension. This resolved with IV fluids. She then required diuresis has of extra fluids. She is feeling much better. She will need to stay on oral antibiotics until I see her in the office next week and then she'll be set up for stent and stone manipulation on the left side in the near future. Objective - Vital Signs Vital signs: Vital Signs Temp 98.4 F 03/01/20 04:00 Pulse 72 03/01/20 09:19 Resp 20 03/01/20 04:00 BP 135/84 03/01/20 04:00 Pulse Ox 93 L 03/01/20 04:00 Intake & Output 02/29/20 03/01/20 03/01/20 18:59 06:59 18:59 Intake Total 350 Output Total 2625 1400 Balance -2275 -1400 Weight 70 kg Intake: IV 100 cefTRIAXone 1 gm In 100 Sodium Chloride 0.9% 50 ml @ 100 mls/hr IVPB Q24HR [facility] Rx#:[id number] Oral 250 Output: Urine 2625 1400 Other: Voiding Method Bedside Commode # Emeses 1 - Labs CBC & Chem 7: 02/29/20 03:46 02/29/20 11:53 Labs: Microbiology - Last 24 Hours (Table) 02/27/20 03:56 Blood Culture - Preliminary Blood No Growth after 72 hours 02/27/20 03:56 Blood Culture - Preliminary Blood No Growth after 72 hours
--- NOTE | 2020-03-01 10:13 | PN ---
PROGRESS NOTE PULMONARY/CRITICAL CARE PROGRESS NOTE: DATE OF SERVICE: 03/01/2020 A 79-year-old female with no significant past medical history, save for recent anterior repair by Dr. Osiris Sierra about a month ago. The patient presents to the hospital on February 25 with left-sided hydronephrosis, severe abdominal pain, urinary tract infection, and kidney stones. 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 The patient is doing relatively well. She is on O2 at 2 L. She is not getting any IV fluids. In addition, the patient did have a cystoscopy performed with a left-sided double-J stent placed. Currently, she denies any major issues including abdominal pain and abdominal discomfort, nausea, vomiting, diarrhea, chest pain, chest discomfort, or breathing issues. She is coughing a bit and producing a small amount of phlegm. She is still on oxygen therapy at 2 L/minute. Will test to see whether or not she needs oxygen when she is ready for discharge from the hospital. Current vital signs are reviewed. Her temperature is 98.4, heart rate 72, respiratory rate 20, blood pressure 135/84 mean 101 and 2 L saturation 93%. Appears in no acute distress. HEENT: Examination is grossly unremarkable. NECK: Supple, full range of motion. No adenopathy. Neck veins are flat. CARDIOVASCULAR: Examination reveals regular rhythm and rate. Heart rate 72. S1, S2 normal. LUNGS: Reveal some very mild expiratory wheezes. No rhonchi. Breath sounds equal. ABDOMEN: Soft, bowel sounds are heard. EXTREMITIES: Intact. No cyanosis, clubbing, or edema. SKIN: Without rash. NEUROLOGIC: Examination is brief but nonfocal. LABS: Reviewed. Nothing from today except for the potassium at 3.8. Microbiology was positive for Proteus mirabilis in the urine on February 25. No recent chest x-ray. Chest x-ray from February 28 shows mild pulmonary venous congestion and interstitial edema. Current medications are reviewed. ASSESSMENT: 1. Acute left-sided hydronephrosis and pyelonephritis secondary to kidney stones with positive urine cultures for Proteus mirabilis. 2. Severe sepsis secondary to urinary tract infection/urosepsis and pyelonephritis. 3. Status post cystoscopy with placement of a double-J catheter on the left side, postoperative day #4. 4. History of pulmonary embolism, treated about 6 years ago with Coumadin. 5. Recent anterior repair by Dr. Sierra. PLAN: Currently, the patient is doing reasonably well. Still remains on oxygen therapy. She apparently dropped down below 90% when oxygen is removed. The patient will have a room- air resting saturation and a saturation when she exerts herself walking up and down the hallway. The Rocephin is discontinued in favor of Augmentin. Additional recommendations and suggestions are forthcoming. She remains on breathing treatments. Will continue to follow. I do encourage her to follow up with us in the office after discharge. She apparently saw my partner, Dr. Dela Cruz a couple years ago and had a PFT at that time, which she states was told was normal. She continues to smoke cigarettes. Additional recommendations and suggestions are forthcoming. BRIE / DANISHA: [id number] /
[2020-03-01 11:47] VITALS: BP 150/62; RESP 16; TEMP 97.9
[2020-03-01 12:24] VITALS: PULSE 72
--- NOTE | 2020-03-01 13:14 | P.DS ---
Providers Date of admission: 02/26/20 17:29 Attending physician: Alli Rawls Consults: 02/27/20 06:46 Consult Physician Stat Consulting Provider: Nolberto Rodriguez Reason/Comments: icu managment Do you want consulting provider notified?: Yes Primary care physician: Radha Ramires Hospital Course: Ms Bryson is a 79 yo female with UTI and left sided ureteral stone. Patient became hypotensive during her hospitilization and was taken to the OR by Dr Rawls for ureteral stent placement. Please see op note dated 02/26 for surgery details. She was admitted to the ICU post operatively due to her hypotension. She required multiple fluid blouses post operatively. She had prolonged hospitilization secondary to her respiratory status, Pulmonology was consulted during her hospital admission. She was weaned off the oxygen on 03/01 and was discharged home on PO abx. She will f/u in one week with Dr rawls. Patient Condition at Discharge: Stable Plan - Discharge Summary Discharge Rx Participant: No New Discharge Prescriptions: New Amoxicillin/Potassium Clav [Augmentin 875-125 Tablet] 1 tab PO Q12HR 10 Days #20 tab No Action Rosuvastatin Calcium [Crestor] 40 mg PO HS Acetaminophen Tab [Tylenol] 650 mg PO ONCE PRN PRN Reason: Pain diphenhydrAMINE [Benadryl] 25 mg PO HS Timolol 0.5% Ophth Soln [Timoptic 0.5% Ophth Soln] 1 drop BOTH EYES BID Latanoprost/Pf [Latanoprost 0.005% Eye Drop] 1 drop BOTH EYES HS Discharge Medication List Rosuvastatin Calcium [Crestor] 40 mg PO HS 08/31/17 [History] Acetaminophen Tab [Tylenol] 650 mg PO ONCE PRN 02/26/20 [History] Latanoprost/Pf [Latanoprost 0.005% Eye Drop] 1 drop BOTH EYES HS 02/26/20 [History] Timolol 0.5% Ophth Soln [Timoptic 0.5% Ophth Soln] 1 drop BOTH EYES BID 02/26/20 [History] diphenhydrAMINE [Benadryl] 25 mg PO HS 02/26/20 [History] Amoxicillin/Potassium Clav [Augmentin 875-125 Tablet] 1 tab PO Q12HR 10 Days #20 tab 03/01/20 [Rx] Follow up Appointment(s)/Referral(s): Nolberto Rodriguez DO [Doctor of Osteopathic Medicine] - 1 Week Radha Ramires DO [Primary Care Provider] - 1-2 days Alli Rawls MD [STAFF PHYSICIAN] - 1 Week Patient Instructions/Handouts: How to Stop Smoking (DC), Heart Healthy Diet (DC), Benefits of an Active Lifestyle (DC)
== END 2020-03-01 14:30 | disposition home or self-care (01) | DRG 854 ==
LOC: EC 13:17 → 5NMEDONC 17:29 → 2SICU 02-27 07:34
PROVIDERS: ADMIT Urology; ATTEND Urology
PROC: 0T778DZ Dilation of Left Ureter with Intraluminal Device, Via Natural or Artificial Opening Endoscopic (ICD-10-PCS; principal; 2020-02-27)
DX: A41.59 Other Gram-negative sepsis (principal); N13.6 Pyonephrosis; R65.20 Severe sepsis without septic shock; I95.9 Hypotension, unspecified; Z11.59 Encounter for screening for other viral diseases; J44.9 Chronic obstructive pulmonary disease, unspecified; I45.10 Unspecified right bundle-branch block; E78.5 Hyperlipidemia, unspecified; F17.210 Nicotine dependence, cigarettes, uncomplicated; K57.30 Diverticulosis of large intestine without perforation or abscess without bleeding; Z71.6 Tobacco abuse counseling; Z98.890 Other specified postprocedural states; Z79.899 Other long term (current) drug therapy; Z86.711 Personal history of pulmonary embolism; Z90.710 Acquired absence of both cervix and uterus; Z88.2 Allergy status to sulfonamides; Z82.49 Family history of ischemic heart disease and other diseases of the circulatory system
CPT/HCPCS: 36415; 71045; 74177; 80048; 80053; 81001; 83605; 83690; 84132; 85025; 85610; 85730; 87040; 87077; 87086; 87186; 93005; 94640; 96361; 96374; 96375; 99285

== ENCOUNTER 2023-04-14 08:30 | Emergency (ER) | payer MEDICARE, BC ==
[2023-04-14 08:35] VITALS: RESP 18; TEMP 98.4
--- NOTE | 2023-04-14 08:47 | ED ---
General Adult HPI - General Chief complaint: Abdominal Pain Stated complaint: Abd Pain Time Seen by Provider: 04/14/23 08:35 Source: patient, RN notes reviewed, old records reviewed Mode of arrival: ambulatory Limitations: no limitations - History of Present Illness Initial comments: This is an 82-year-old female who has a past medical history significant for cystocele. Patient states she did have repaired years ago. Patient comes in today complaining of lower abdominal pain in the suprapubic region. Patient states it started about a week ago she went to an urgent care where they gave her antibiotics but didn't help at all and she continues to have the pain. Patient states she also has a little bit of lower back pain which she states is somewhat reminiscent of a kidney stone she had but it is bilateral today. Patient denies any fever chills. Patient denies any dysuria hematuria. Patient denies any vaginal discharge. Patient has a bulging from the vagina. Patient denies any nausea vomiting patient denies any upper abdominal pain - Related Data Home Medications Medication Instructions Recorded Confirmed Rosuvastatin Calcium [Crestor] 40 mg PO HS 08/31/17 02/26/20 Acetaminophen Tab [Tylenol] 650 mg PO ONCE PRN 02/26/20 02/26/20 Latanoprost/Pf [Latanoprost 0.005% 1 drop BOTH EYES HS 02/26/20 02/26/20 Eye Drop] Timolol 0.5% Ophth Soln [Timoptic 1 drop BOTH EYES BID 02/26/20 02/26/20 0.5% Ophth Soln] diphenhydrAMINE [Benadryl] 25 mg PO HS 02/26/20 02/26/20 Previous Rx's Medication Instructions Recorded Amoxicillin/Potassium Clav 1 tab PO Q12HR 10 Days #20 tab 03/01/20 [Augmentin 875-125 Tablet] Allergies Allergy/AdvReac Type Severity Reaction Status Date / Time Sulfa (Sulfonamide Allergy Severe Rash/Hives Verified 04/14/23 08:35 Antibiotics) Review of Systems ROS Statement: Those systems with pertinent positive or pertinent negative responses have been documented in the HPI. ROS Other: All systems not noted in ROS Statement are negative. Past Medical History Past Medical History: COPD, Hyperlipidemia, Pulmonary Embolus (PE) Additional Past Medical History / Comment(s): Patient states that she has history of Pulmonary Embolism about 6 years ago. She was placed on Coumadin and monitored for 6 months and then taken off Coumadin at that time. History of Any Multi-Drug Resistant Organisms: None Reported Past Surgical History: Hysterectomy Additional Past Surgical History / Comment(s): colonoscopy, cyctocele repair 02/08/2020 Past Anesthesia/Blood Transfusion Reactions: No Reported Reaction Past Psychological History: No Psychological Hx Reported Smoking Status: Current every day smoker Past Alcohol Use History: Occasional Past Drug Use History: None Reported - Past Family History Father Family Medical History: Myocardial Infarction (PA) Mother Family Medical History: No Reported History General Exam - General Exam Comments Initial Comments: GENERAL: Patient is well-developed and well-nourished. Patient is nontoxic and well- hydrated and is in mild distress. ENT: Neck is soft and supple. No significant lymphadenopathy is noted. Oropharynx is clear. Moist mucous membranes. Neck has full range of motion without eliciting any pain. EYES: The sclera were anicteric and conjunctiva were pink and moist. Extraocular movements were intact and pupils were equal round and reactive to light. Eyelids were unremarkable. PULMONARY: Unlabored respirations. Good breath sounds bilaterally. No audible rales rhonchi or wheezing was noted. CARDIOVASCULAR: There is a regular rate and rhythm without any murmurs gallops or rubs. ABDOMEN: Soft and nontender with normal bowel sounds. PELVIC: On speculum exam I saw no acute abnormality and did not see any cystocele SKIN: Skin is clear with no lesions or rashes and otherwise unremarkable. NEUROLOGIC: Patient is alert and oriented x3. Cranial nerves II through XII are grossly intact. Motor and sensory are also intact. Normal speech, volume and content. Symmetrical smile. MUSCULOSKELETAL: Normal extremities with adequate strength and full range of motion. No lower extremity swelling or edema. No calf tenderness. LYMPHATICS: No significant lymphadenopathy is noted PSYCHIATRIC: Normal psychiatric evaluation. Limitations: no limitations Course Vital Signs 04/14/23 04/14/23 08:32 12:14 Temperature 98.4 F Pulse Rate 69 58 L Respiratory 18 18 Rate Blood Pressure 150/83 121/72 O2 Sat by Pulse 98 96 Oximetry Medical Decision Making - Medical Decision Making Was pt. sent in by a medical professional or institution (, PA, [employer], urgent care, hospital, or jail...) When possible be specific @ -No Did you speak to anyone other than the patient for history (EMS, parent, family, police, friend...)? What history was obtained from this source @ -No Did you review nursing and triage notes (agree or disagree)? Why? @ -I reviewed and agree with nursing and triage notes Were old charts reviewed (outside hosp., previous admission, EMS record, old EKG, old radiological studies, urgent care reports/EKG's, jail records)? Report findings @ -No old charts were reviewed Differential Diagnosis (chest pain, altered mental status, abdominal pain women, abdominal pain men, vaginal bleeding, weakness, fever, dyspnea, syncope, headache, dizziness, GI bleed, back pain, seizure, CVA, palpatations, mental health, musculoskeletal)? @ -Differential Abdominal Pain Women: Appendicitis, Cholecystitis, diverticulosis, ischemic bowel, pancreatitis, hepatitis, UTI, gastroenteritis, AAA, incarcerated hernia, bowel obstruction, constipation, inflammatory bowel, hepatitis, peptic ulcer disease, splenic infarction, perforated viscus, vulvitis, ovarian torsion, PID, kidney stone, placenta abruption, this is not meant to be an all-inclusive list EKG interpreted by me (3pts min.). @ -As above X-rays interpreted by me (1pt min.). @ -None done CT interpreted by me (1pt min.). @ -None done U/S interpreted by me (1pt. min.). @ -Ultrasound showed no acute abnormality What testing was considered but not performed or refused? (CT, X-rays, U/S, labs)? Why? @ -None What meds were considered but not given or refused? Why? @ -None Did you discuss the management of the patient with other professionals (professionals i.e. , PA, [employer], lab, RT, psych nurse, social director, model builder, teacher, equal opportunity officer, top case assembler)? Give summary @ -No Was smoking cessation discussed for >3mins.? @ -No Was critical care preformed (if so, how long)? @ -No Were there social determinants of health that impacted care today? How? (Homelessness, low income, unemployed, alcoholism, drug addiction, transportation, low edu. Level, literacy, decrease access to med. care, penitentiary, rehab)? @ -No Was there de-escalation of care discussed even if they declined (Discuss DNR or withdrawal of care, Hospice)? DNR status @ -No What co-morbidities impacted this encounter? (DM, HTN, Smoking, COPD, CAD, Cancer, CVA, ARF, Chemo, Hep., AIDS, mental health diagnosis, sleep apnea, morbid obesity)? @ -None Was patient admitted / discharged? Hospital course, mention meds given and route, prescriptions, significant lab abnormalities, going to OR and other pertinent info. @ -Patient's lab work urine and ultrasound round negative. 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 Patient states that it feels as though the discomfort is inside her vagina. On pelvic exam there was no acute abnormality Undiagnosed new problem with uncertain prognosis? @ -No Drug Therapy requiring intensive monitoring for toxicity (Heparin, Nitro, Insulin, Cardizem)? @ -No Were any procedures done? @ -No Diagnosis/symptom? @ -Lower abdominal pain Acute, or Chronic, or Acute on Chronic? @ -Acute Uncomplicated (without systemic symptoms) or Complicated (systemic symptoms)? @ -Complicated Side effects of treatment? @ -No Exacerbation, Progression, or Severe Exacerbation? @ -No Poses a threat to life or bodily function? How? (Chest pain, USA, PA, pneumonia, PE, COPD, DKA, ARF, appy, cholecystitis, CVA, Diverticulitis, Homicidal, Suicidal, threat to staff... and all critical care pts) @ -No - Lab Data Result diagrams: 04/14/23 08:55 04/14/23 08:55 Lab Results 04/14/23 04/14/23 04/14/23 Range/Units 08:55 08:55 08:55 WBC 10.4 (3.8-10.6) k/uL RBC 4.63 (3.80-5.40) m/uL Hgb 14.2 (11.4-16.0) gm/dL Hct 43.6 (34.0-46.0) % MCV 94.3 (80.0-100.0) fL MCH 30.7 (25.0-35.0) pg MCHC 32.6 (31.0-37.0) g/dL RDW 12.7 (11.5-15.5) % Plt Count 306 (150-450) k/uL MPV 8.0 Neutrophils % 61 % Lymphocytes % 23 % Monocytes % 7 % Eosinophils % 6 % Basophils % 1 % Neutrophils # 6.4 (1.3-7.7) k/uL Lymphocytes # 2.4 (1.0-4.8) k/uL Monocytes # 0.8 (0-1.0) k/uL Eosinophils # 0.6 (0-0.7) k/uL Basophils # 0.1 (0-0.2) k/uL Sodium 137 (137-145) mmol/L Potassium 5.0 (3.5-5.1) mmol/L Chloride 108 H (98-107) mmol/L Carbon Dioxide 21 L (22-30) mmol/L Anion Gap 8 mmol/L BUN 14 (7-17) mg/dL Creatinine 0.61 (0.52-1.04) mg/dL Est GFR (CKD-EPI)AfAm >90 (>60 ml/min/1.73 sqM) Est GFR (CKD-EPI)NonAf 85 (>60 ml/min/1.73 sqM) Glucose 107 H (74-99) mg/dL Calcium 9.4 (8.4-10.2) mg/dL Total Bilirubin 0.5 (0.2-1.3) mg/dL AST 34 (14-36) U/L ALT 27 (4-34) U/L Alkaline Phosphatase 123 (38-126) U/L Total Protein 7.5 (6.3-8.2) g/dL Albumin 4.1 (3.5-5.0) g/dL Urine Color Colorless Urine Appearance Clear (Clear) Urine pH 6.0 (5.0-8.0) Ur Specific [place] 1.008 (1.001-1.035) Urine Protein 1+ H (Negative) Urine Glucose (UA) Negative (Negative) Urine Ketones Negative (Negative) Urine Blood Negative (Negative) Urine Nitrite Negative (Negative) Urine Bilirubin Negative (Negative) Urine Urobilinogen <2.0 (<2.0) mg/dL Ur Leukocyte Esterase Small H (Negative) Urine RBC 1 (0-5) /hpf Urine WBC 3 (0-5) /hpf Ur Squamous Epith Cells 1 (0-4) /hpf Hyaline Casts 1 (0-2) /lpf Disposition Clinical Impression: Abdominal pain Disposition: HOME SELF-CARE Instructions (If sedation given, give patient instructions): Abdominal Pain (ED) Additional Instructions: Patient should follow-up with primary medical care doctor. Patient should follow-up with gynecology. Patient should return to the emergency department for new or worsening symptoms Is patient prescribed a controlled substance at d/c from ED?: No Referrals: Radha Ramires DO [Primary Care Provider] - 1-2 days Time of Disposition: 12:32
[2023-04-14 09:09] LABS: Appearance,Urine Clear (Clear); Bilirubin,Urine Negative (Negative); Blood,Urine Negative (Negative); Color,Urine Colorless; Glucose,Urine (UA) Negative (Negative); Hyaline Casts,Urine 1 /lpf (0-2); Ketones,Urine Negative (Negative); Leukocyte Esterase,Urine Small (Negative); Nitrite,Urine Negative (Negative); Protein,Urine 1+ (Negative); RBC,Urine 1 /hpf (0-5); Specific Gravity,Urine 1.008 (1.001-1.035); Squamous Epithelial Cell,Urine 1 /hpf (0-4); Urobilinogen,Urine <2.0 mg/dL (<2.0); WBC,Urine 3 /hpf (0-5)
[2023-04-14 09:13] LABS: Basophils # (A) 0.1 k/uL (0-0.2); Basophils % (A) 1 %; Eosinophils # (A) 0.6 k/uL (0-0.7); Eosinophils % (A) 6 %; HCT 43.6 % (34.0-46.0); HGB 14.2 gm/dL (11.4-16.0); Lymphocytes # (A) 2.4 k/uL (1.0-4.8); Lymphocytes % (A) 23 %; MCH 30.7 pg (25.0-35.0); MCHC 32.6 g/dL (31.0-37.0); MCV 94.3 fL (80.0-100.0); Monocytes # (A) 0.8 k/uL (0-1.0); Monocytes % (A) 7 %; Neutrophils # (A) 6.4 k/uL (1.3-7.7); Neutrophils % (A) 61 %; Platelet Count 306 k/uL (150-450); RBC 4.63 m/uL (3.80-5.40); RDW 12.7 % (11.5-15.5); WBC 10.4 k/uL (3.8-10.6)
[2023-04-14 09:49] LABS: ALT 27 U/L (4-34); AST 34 U/L (14-36); African American GFR (CKD) >90 (>60 ml/min/1.73 sqM); Albumin 4.1 g/dL (3.5-5.0); Alkaline Phosphatase 123 U/L (38-126); Anion Gap 8 mmol/L; Blood Urea Nitrogen 14 mg/dL (7-17); Calcium 9.4 mg/dL (8.4-10.2); Carbon Dioxide 21 mmol/L (22-30); Chloride 108 mmol/L (98-107); Glucose 107 mg/dL (74-99); Non-African American GFR(CKD) 85 (>60 ml/min/1.73 sqM); Sodium 137 mmol/L (137-145); Total Bilirubin 0.5 mg/dL (0.2-1.3); Total Protein 7.5 g/dL (6.3-8.2)
--- NOTE | 2023-04-14 11:12 | US ---
EXAMINATION TYPE: US pelvic limited DATE OF EXAM: 04/14/2023 COMPARISON: CT CLINICAL INDICATION: Female, 82 years old with history of Vaginal pressure; Pt states pelvic pressure , hysterectomy 40 yrs ago TECHNIQUE: Transabdominal (TA). Transabdominal sonographic images of the pelvis were acquired. 1. Uterus: Surgically absent 2. Endometrium: Surgically absent 3. Right Ovary: Surgically absent 4. Left Ovary: Surgically absent 5. Bilateral Adnexa: wnl 6. Posterior cul-de-sac: wnl No evidence of pelvic mass s/p hysterectomy, bladder appeared wnl, however abnormal post void at 7 9 ml IMPRESSION: Post void residual is increased at 79 mL. Otherwise unremarkable study.
[2023-04-14 12:15] VITALS: BP 121/72; PULSE 58
== END 2023-04-14 12:30 | disposition home or self-care (01) ==
LOC: EC 08:30
DX: R10.30 Lower abdominal pain, unspecified (principal); J44.9 Chronic obstructive pulmonary disease, unspecified; E78.5 Hyperlipidemia, unspecified; F17.200 Nicotine dependence, unspecified, uncomplicated; Z86.711 Personal history of pulmonary embolism; Z88.2 Allergy status to sulfonamides; Z79.899 Other long term (current) drug therapy
CPT/HCPCS: 36415; 76857; 80053; 81001; 85025; 99284

== ENCOUNTER → 2023-04-23 | Outpatient (CLI) | payer MEDICARE, BC ==
[2023-04-23 09:33] LABS: African American GFR (CKD) 79 (>60 ml/min/1.73 sqM); Blood Urea Nitrogen 19 mg/dL (7-17); Non-African American GFR(CKD) 68 (>60 ml/min/1.73 sqM)
--- NOTE | 2023-04-23 10:27 | CT ---
EXAMINATION: CT SCAN OF THE PELVIS WITH INTRAVENOUS CONTRAST DATE OF EXAM: 04/23/2023 10:04 AM HISTORY: R10.2 PELVIC AND PERINEAL PAIN COMPARISON: None. TECHNIQUE: CT examination of the pelvis was performed following the intravenous administration of iod inated contrast. CT dose lowering techniques were used, to include: automated exposure control, adjus tment for patient size, and/or use of iterative reconstruction. FINDINGS: PELVIS: GI Tract: There is moderate sigmoid colonic diverticulosis without evidence of diverticulitis. (Note : Small and Large bowel are only partially imaged as portions located in the abdomen are not include d with Pelvis CT) Mesentery/Peritoneum: Normal. Vasculature: There is significant vascular calcification throughout the abdominal aorta without evide nce of aneurysmal dilation or dissection. Lymph Nodes: Normal. Abdominal Wall: Normal. Bladder: Mild bladder prolapse into the vagina. Reproductive: Normal. Musculoskeletal: Normal. IMPRESSION: 1. Diverticulosis without evidence of diverticulitis. 2. Mild bladder prolapse.
== END | disposition home or self-care (01) ==
LOC: RADCTMAIN 07:40
PROVIDERS: ATTEND Family Medicine
DX: K57.30 Diverticulosis of large intestine without perforation or abscess without bleeding (principal); N81.10 Cystocele, unspecified; R19.4 Change in bowel habit; R10.2 Pelvic and perineal pain
CPT/HCPCS: 82565; 84520; 72193; 36415; Q9967

== ENCOUNTER 2023-06-03 07:35 | Day surgery (SDC) | payer MEDICARE, BC ==
[2023-06-02 11:21] VITALS: BMI 27.3
[2023-06-03] MEDS ORDERED: LIDOCAINE 1% (10MG/ML) FOR IV START INTRADERMA PRN (07:55)
[2023-06-03 08:04] VITALS: RESP 16; TEMP 97.6
[2023-06-03] MEDS: LACTATED RINGERS 1,000 ML IV SCH ×2 (08:09→08:44)
[2023-06-03] MEDS ORDERED: LIDOCAINE 1% INJ 10MG/ML (20 ML MDV) ONE (08:45)
[2023-06-03] MEDS ORDERED: PROPOFOL 10 MG/ML 20 ML VIAL IV ONE (08:45)
--- NOTE | 2023-06-03 09:14 | P.PCN ---
Date of Procedure: 06/03/23 Procedure(s) Performed: BRIEF HISTORY: Patient is a 82-year-old pleasant white female scheduled for an elective colonoscopy as a part of evaluation of change in bowel habits and intermittent lower abdominal pain for the last 6 months duration. PROCEDURE PERFORMED: Colonoscopy. PREOPERATIVE DIAGNOSIS: Abdominal pain and change in bowel habits. IV sedation per Anesthesia. PROCEDURE: After informed consent was obtained, the patient, was brought into the endoscopy unit. IV sedation was administered by Anesthesia under continuous monitoring. Digital rectal examination was normal. Initially the Olympus CF-160 flexible video colonoscope was then inserted in the rectum, gradually advanced into the sigmoid: Further advancement was not possible because of acute angle duration this area. The scope was removed and a pediatric colonoscopy was introduced rectum and gradually advanced into the cecum moderate to severe difficulty. Careful examination was performed as the scope was gradually being withdrawn. Ileocecal valve and the appendiceal orifice were visualized and appeared normal. Prep was fair.. Mucosa of the cecum, ascending colon, transverse colon, descending colon, sigmoid colon, and rectum appeared normal. Extensive left sided diverticulosis seen. Retroflexion was performed in the rectum and no lesions were seen. The patient tolerated the procedure well. IMPRESSION: Normal-appearing colon from rectum to cecum with no evidence of colorectal neoplasia . Extensive left-sided diverticulosis. RECOMMENDATIONS: Findings of this examination were discussed with the patient as well as a family. She was advised to be a high-fiber diet and take fiber supplements a regular basis and use osmotic laxatives as needed..
[2023-06-03 09:58] VITALS: BP 144/73; PULSE 68
== END 2023-06-03 10:07 | disposition home or self-care (01) ==
LOC: ORWHC2ENDO 07:35
PROVIDERS: ATTEND Internal Medicine Gastroenterology
DX: R19.4 Change in bowel habit (principal); K57.30 Diverticulosis of large intestine without perforation or abscess without bleeding; E78.5 Hyperlipidemia, unspecified; F17.210 Nicotine dependence, cigarettes, uncomplicated; Z88.2 Allergy status to sulfonamides; Z79.899 Other long term (current) drug therapy
CPT/HCPCS: J2001; J2704; G0121; 45378

== ENCOUNTER 2024-05-07 11:20 | Emergency (ER) | payer MEDICARE, BC ==
[2024-05-07 11:28] VITALS: BP 170/72; PULSE 74; RESP 16; TEMP 97.7
--- NOTE | 2024-05-07 11:31 | ED ---
Upper Extremity HPI - General Chief Complaint: Extremity Injury, Upper Stated Complaint: FALL,wrist injury Time Seen by Provider: 05/07/24 11:31 Source: patient, family, RN notes reviewed Limitations: no limitations - History of Present Illness Initial Comments: This is an 83-year-old female presents emergency department for chief complaint of a right wrist injury. She states that she was in her room when she tripped over her shoes falling forward onto her outstretched wrist. Patient denies hitting her head or loss conscious at the time of this event. She denies current blood thinner use. She endorses pain over the right wrist. Denies paresthesias. Denies previous surgeries of the right wrist. denies other acute bony injuries. No other acute complaints at this time. - Related Data Home Medications Medication Instructions Recorded Confirmed Rosuvastatin Calcium [Crestor] 40 mg PO HS 08/31/17 06/03/23 Latanoprost/Pf [Latanoprost 0.005% 1 drop BOTH EYES HS 02/26/20 06/03/23 Eye Drop] Timolol 0.5% Ophth Soln [Timoptic 1 drop BOTH EYES BID 02/26/20 06/03/23 0.5% Ophth Soln] diphenhydrAMINE [Benadryl] 25 mg PO HS 02/26/20 06/03/23 Ibuprofen [Advil] 200 mg PO Q8HR PRN 06/02/23 06/03/23 Multivitamin [Multivitamins Adult 1 tab PO DAILY 06/02/23 06/02/23 Gummies] Previous Rx's Medication Instructions Recorded HYDROcodone/APAP 7.5-325MG [[place] 1 tab PO Q6HR PRN 3 Days #12 tab 05/07/24 7.5-325] Allergies Allergy/AdvReac Type Severity Reaction Status Date / Time Sulfa (Sulfonamide Allergy Severe Rash/Hives Verified 06/03/23 07:56 Antibiotics) Review of Systems ROS Statement: Those systems with pertinent positive or pertinent negative responses have been documented in the HPI. ROS Other: All systems not noted in ROS Statement are negative. Past Medical History Past Medical History: Eye Disorder, Hyperlipidemia, Pulmonary Embolus (PE) Additional Past Medical History / Comment(s): Patient states that she has history of Pulmonary Embolism about 6 years ago. She was placed on Coumadin and monitored for 6 months and then taken off Coumadin at that time. colonoscopy, watching eye pressures History of Any Multi-Drug Resistant Organisms: None Reported Past Surgical History: Hysterectomy, Tonsillectomy Additional Past Surgical History / Comment(s): colonoscopy, cyctocele repair 02/08/2020 Past Anesthesia/Blood Transfusion Reactions: No Reported Reaction Past Psychological History: No Psychological Hx Reported Smoking Status: Current every day smoker - Past Family History Father Family Medical History: Myocardial Infarction ([place]) Mother Family Medical History: No Reported History General Exam Limitations: no limitations General appearance: alert, in no apparent distress Eye exam: Present: normal appearance, PERRL, EOMI. Absent: scleral icterus, conjunctival injection, periorbital swelling ENT exam: Present: normal exam, mucous membranes moist Neck exam: Present: normal inspection. Absent: tenderness, meningismus, lymphadenopathy Respiratory exam: Present: normal lung sounds bilaterally. Absent: respiratory distress, wheezes, rales, rhonchi, stridor Cardiovascular Exam: Present: regular rate, normal rhythm, normal heart sounds. Absent: systolic murmur, diastolic murmur, rubs, gallop, clicks GI/Abdominal exam: Present: soft, normal bowel sounds. Absent: distended, tenderness, guarding, rebound, rigid Right Forearm Wrist exam: Present: tenderness, swelling, deformity. Absent: normal inspection, full ROM Hand Wrist exam: Present: normal inspection, full ROM. Absent: tenderness Neuro motor exam: Present: thumb opposition intact. Absent: wrist extension intact Vascular: Present: normal capillary refill, radial pulse (2+). Absent: vascular compromise Back exam: Present: normal inspection Skin exam: Present: warm, dry, intact, normal color. Absent: rash Course Vital Signs 05/07/24 11:26 Temperature 97.7 F Pulse Rate 74 Respiratory 16 Rate Blood Pressure 170/72 O2 Sat by Pulse 94 L Oximetry Procedures - Nerve Block Consent Obtained: verbal consent Local Anesthetic Used: Lidocaine 1% Side: right Nerve Blocks: hematoma block Procedure Successful: Yes Patient Tolerated Procedure: well, no complications Additional Comments: performed in a sterile environment, using chloraprep, successfull block perfromed by Dr. Aponte - Orthopedic Splinting/Casting Injury #1 Side: right Upper Extremity Injury Location: wrist Upper Extremity Immobilizer: thumb spica, Elvin wrap, synthetic pre-padded splint Medical Decision Making - Medical Decision Making Was pt. sent in by a medical professional or institution (, ANYA, NAVAL INSPECTOR, urgent care, hospital, or fpc...) When possible be specific @ -No Did you speak to anyone other than the patient for history (EMS, parent, family, police, friend...)? What history was obtained from this source @ -No Did you review nursing and triage notes (agree or disagree)? Why? @ -I reviewed and agree with nursing and triage notes Were old charts reviewed (outside hosp., previous admission, EMS record, old EKG, old radiological studies, urgent care reports/EKG's, fpc records)? Report findings @ -No old charts were reviewed Differential Diagnosis (chest pain, altered mental status, abdominal pain women, abdominal pain men, vaginal bleeding, weakness, fever, dyspnea, syncope, headache, dizziness, GI bleed, back pain, seizure, CVA, palpatations, mental health, musculoskeletal)? @ -Differential Musculoskeletal Muscular strain, contusion, ligament sprain, fracture, arthritis, septic arthritis, bursitis, cellulitis, muscle spasm, nerve compression, DVT, arterial occlusion, herpes zoster, electrolyte abnormality, tumor.... This is not meant to be in all inclusive list EKG interpreted by me (3pts min.). @ -none X-rays interpreted by me (1pt min.). @ -X-ray of the right wrist reveals a distal radial and ulnar fractures. CT interpreted by me (1pt min.). @ -None done U/S interpreted by me (1pt. min.). @ -None done What testing was considered but not performed or refused? (CT, X-rays, U/S, labs)? Why? @ -None What meds were considered but not given or refused? Why? @ -None Did you discuss the management of the patient with other professionals (professionals i.e. , ANYA, NAVAL INSPECTOR, lab, RT, psych nurse, social services designee, escort patients, teacher, sales officer, manager rn case)? Give summary @ -No Was smoking cessation discussed for >3mins.? @ -No Was critical care preformed (if so, how long)? @ -No Were there social determinants of health that impacted care today? How? (Homelessness, low income, unemployed, alcoholism, drug addiction, transportation, low edu. Level, literacy, decrease access to med. care, fdc, rehab)? @ -No Was there de-escalation of care discussed even if they declined (Discuss DNR or withdrawal of care, Hospice)? DNR status @ -No What co-morbidities impacted this encounter? (DM, HTN, Smoking, COPD, CAD, Cancer, CVA, ARF, Chemo, Hep., AIDS, mental health diagnosis, sleep apnea, morbid obesity)? @ -None Was patient admitted / discharged? Hospital course, mention meds given and route, prescriptions, significant lab abnormalities, going to OR and other pertinent info. @ -Discharged. 83-year-old female with right wrist pain. On examination patient noted to have obvious deformity of the right wrist with strong palpable pulses and no neurovascular deficits. Range of motion is unable to be assessed of the wrist due to pain. X-ray remarkable for distal radial and ulnar fractures. My attending, Dr. Aponte, performed a hematoma block on the patient's right wrist and performed gentle occasion and wrist was splinted in a thumb spica splint. Patient has followed with a critical care clinical nurse specialist in the past for her right shoulder and recommend that she contact her critical care clinical nurse specialist office today to schedule a follow-up appointment as soon as possible for further evaluation of fractures. Patient was placed in a splint and instructed to keep this in place until follow-up appointment has been made. Additionally, she is provided with outpatient [place] for pain control to take at home as needed. All questions answered at bedside and strict return where were discussed with the patient she is verbalized understanding. Case discussed with Dr. Aponte Undiagnosed new problem with uncertain prognosis? @ -No Drug Therapy requiring intensive monitoring for toxicity (Heparin, Nitro, Insulin, Cardizem)? @ -No Were any procedures done? @ -hematoma block, orthopedic splinting Diagnosis/symptom? @ -Distal radial ulnar fracture Acute, or Chronic, or Acute on Chronic? @ -acute Uncomplicated (without systemic symptoms) or Complicated (systemic symptoms)? @ -uncomplicated Side effects of treatment? @ -No Exacerbation, Progression, or Severe Exacerbation? @ -No Poses a threat to life or bodily function? How? (Chest pain, USA, MA, pneumonia, PE, COPD, DKA, ARF, appy, cholecystitis, CVA, Diverticulitis, Homicidal, Suicidal, threat to staff... and all critical care pts) @ -No Disposition Clinical Impression: Closed fracture distal radius and ulna Disposition: HOME SELF-CARE Condition: Good Instructions (If sedation given, give patient instructions): Wrist Fracture in Adults (ED) Additional Instructions: Please return to the Emergency Department if symptoms worsen or any other concerns. Continue to take as needed pain medication as prescribed. Follow-up with critical care clinical nurse specialist as soon as possible that is provided. Continue to keep splint in place until follow-up. Prescriptions: HYDROcodone/APAP 7.5-325MG [[place] 7.5-325] 1 tab PO Q6HR PRN 3 Days #12 tab PRN Reason: Severe Pain (Scale 7 To 10) Is patient prescribed a controlled substance at d/c from ED?: Yes When asked, does pt state using other controlled substances?: No If prescribed controlled substance>3 days was MAPS reviewed?: Prescribed <3 Days Referrals: Radha Ramires DO [Primary Care Provider] - 1-2 days Jory Lara DO [Doctor of Osteopathic Medicine] - 1-2 days Time of Disposition: 13:00
[2024-05-07] MEDS: LIDOCAINE 1% INJ 10MG/ML (20 ML MDV) SQ ONE (12:11)
--- NOTE | 2024-05-07 12:25 | XR ---
EXAMINATION TYPE: XR forearm RT, XR wrist complete RT DATE OF EXAM: 05/07/2024 CLINICAL HISTORY: pain TECHNIQUE: Frontal and lateral images of the right forearm are obtained. 4 views of the right wrist are submitted. COMPARISON: None. FINDINGS: There is distal impacted distal radial fracture with dorsal angulation noted. Mild comminut ion seen. A degree of intra-articular extension is difficult to exclude. There is also ulnar styloid component fracture seen. No additional fractures noted at this time. IMPRESSION: Distal radial and ulnar fractures. [facility], , 05/07/2024 12:23 PM
[2024-05-07] MEDS: HYDROmorphone 0.5 MG/0.5 ML SYRINGE IM STA (13:19)
== END 2024-05-07 13:31 | disposition home or self-care (01) ==
LOC: EC 11:20
CPT/HCPCS: 29125; 96372; 99283

== ENCOUNTER 2024-11-06 20:12 | Emergency (ER) | payer MEDICARE, BC ==
[2024-11-06 20:33] VITALS: RESP 18
[2024-11-06] MEDS: HYDROcodone/APAP 7.5-325MG 1 EACH TAB PO ONE (20:51)
--- NOTE | 2024-11-06 21:13 | XR ---
EXAMINATION TYPE: XR ankle complete RT DATE OF EXAM: 11/06/2024 9:01 PM COMPARISON: None. CLINICAL INDICATION: Female, 84 years old with history of injury, pain TECHNIQUE: 3 view(s) obtained. FINDINGS: There is soft tissue swelling over the lateral malleolus. Ankle mortise is intact. No acute fracture or dislocation evident. Tiny plantar calcaneal heel spur is present. Follow up exams can be performed 7-10 days from acute trauma for continued pain. IMPRESSION: 1. No acute osseous abnormality right ankle. 2. Soft tissue swelling over the lateral malleolus. [facility], , 11/06/2024 9:11 PM
--- NOTE | 2024-11-06 21:40 | ED ---
General Adult HPI - General Chief complaint: Extremity Injury, Lower Stated complaint: Fall, R Ankle Injury Time Seen by Provider: 11/06/24 20:34 Source: patient Mode of arrival: wheelchair Limitations: no limitations - History of Present Illness Initial comments: 84-year-old female presenting with chief complaint of right ankle pain. Patient reports she was standing up from sitting on the couch when her knee gave out and caused her to roll her ankle. She has known problems with this knee and is not having any increased tenderness to the knee. She is having some swelling and tenderness over the lateral malleolus. She is having increased pain with weightbearing. No other injuries. No numbness or tingling. - Related Data Home Medications Medication Instructions Recorded Confirmed Rosuvastatin Calcium [Crestor] 40 mg PO HS 08/31/17 06/03/23 Latanoprost/Pf [Latanoprost 0.005% 1 drop BOTH EYES HS 02/26/20 06/03/23 Eye Drop] Timolol 0.5% Ophth Soln [Timoptic 1 drop BOTH EYES BID 02/26/20 06/03/23 0.5% Ophth Soln] diphenhydrAMINE [Benadryl] 25 mg PO HS 02/26/20 06/03/23 Ibuprofen [Advil] 200 mg PO Q8HR PRN 06/02/23 06/03/23 Multivitamin [Multivitamins Adult 1 tab PO DAILY 06/02/23 06/02/23 Gummies] Previous Rx's Medication Instructions Recorded HYDROcodone/APAP 7.5-325MG [[place] 1 tab PO Q6HR PRN 3 Days #12 tab 05/07/24 7.5-325] Allergies Allergy/AdvReac Type Severity Reaction Status Date / Time Sulfa (Sulfonamide Allergy Severe Rash/Hives Verified 11/06/24 20:33 Antibiotics) Review of Systems ROS Statement: Those systems with pertinent positive or pertinent negative responses have been documented in the HPI. ROS Other: All systems not noted in ROS Statement are negative. Past Medical History Past Medical History: Eye Disorder, Hyperlipidemia, Pulmonary Embolus (PE) Additional Past Medical History / Comment(s): Patient states that she has history of Pulmonary Embolism about 6 years ago. She was placed on Coumadin and monitored for 6 months and then taken off Coumadin at that time. colonoscopy, watching eye pressures History of Any Multi-Drug Resistant Organisms: None Reported Past Surgical History: Hysterectomy, Tonsillectomy Additional Past Surgical History / Comment(s): colonoscopy, cyctocele repair 02/08/2020 Past Anesthesia/Blood Transfusion Reactions: No Reported Reaction Past Psychological History: No Psychological Hx Reported Smoking Status: Current every day smoker Past Alcohol Use History: None Reported Past Drug Use History: None Reported - Past Family History Father Family Medical History: Myocardial Infarction (MA) Mother Family Medical History: No Reported History General Exam Limitations: no limitations General appearance: alert, in no apparent distress Head exam: Present: atraumatic, normocephalic, normal inspection Eye exam: Present: normal appearance, EOMI Neck exam: Present: normal inspection. Absent: meningismus Respiratory exam: Absent: respiratory distress Cardiovascular Exam: Present: regular rate Right Ankle exam: Present: tenderness, swelling. Absent: full ROM, deformity Neurovascular tendon exam: Present: no vascular compromise Neurological exam: Present: alert, oriented X3 Psychiatric exam: Present: normal affect, normal mood Skin exam: Present: warm, dry, normal color Course Vital Signs 11/06/24 11/06/24 20:31 21:57 Temperature 98.4 F 98.0 F Pulse Rate 94 90 Respiratory 18 18 Rate Blood Pressure 149/74 154/71 O2 Sat by Pulse 95 94 L Oximetry Medical Decision Making - Medical Decision Making Was pt. sent in by a medical professional or institution (, PA, REVERSE ENGINEER, urgent care, hospital, or jail...) When possible be specific @ -No Did you speak to anyone other than the patient for history (EMS, parent, family, police, friend...)? What history was obtained from this source @ -[id number] Did you review nursing and triage notes (agree or disagree)? Why? @ -I reviewed and agree with nursing and triage notes Were old charts reviewed (outside hosp., previous admission, EMS record, old EKG, old radiological studies, urgent care reports/EKG's, jail records)? Report findings @ -No old charts were reviewed Differential Diagnosis (chest pain, altered mental status, abdominal pain women, abdominal pain men, vaginal bleeding, weakness, fever, dyspnea, syncope, headache, dizziness, GI bleed, back pain, seizure, CVA, palpatations, mental hea lth, musculoskeletal)? @ -Differential Musculoskeletal Muscular strain, contusion, ligament sprain, fracture, arthritis, septic arthritis, bursitis, cellulitis, muscle spasm, nerve compression, DVT, arterial occlusion, herpes zoster, electrolyte abnormality, tumor.... This is not meant to be in all inclusive list EKG interpreted by me (3pts min.). @ -As above X-rays interpreted by me (1pt min.). @ -X-ray negative for fracture or dislocation CT interpreted by me (1pt min.). @ -None done U/S interpreted by me (1pt. min.). @ -None done What testing was considered but not performed or refused? (CT, X-rays, U/S, labs)? Why? @ -None What meds were considered but not given or refused? Why? @ -None Did you discuss the management of the patient with other professionals (professionals i.e. , PA, REVERSE ENGINEER, lab, RT, psych nurse, social organization professor, trust accounts supervisor, teacher, fisheries enforcement officer, case mgr)? Give summary @ -No Was smoking cessation discussed for >3mins.? @ -No Was critical care preformed (if so, how long)? @ -No Were there social determinants of health that impacted care today? How? (Homelessness, low income, unemployed, alcoholism, drug addiction, transportation, low edu. Level, literacy, decrease access to med. care, senior living, rehab)? @ -No Was there de-escalation of care discussed even if they declined (Discuss DNR or withdrawal of care, Hospice)? DNR status @ -No What co-morbidities impacted this encounter? (DM, HTN, Smoking, COPD, CAD, Cancer, CVA, ARF, Chemo, Hep., AIDS, mental health diagnosis, sleep apnea, morbid obesity)? @ -None Was patient admitted / discharged? Hospital course, mention meds given and route, prescriptions, significant lab abnormalities, going to OR and other pertinent info. @ -84-year-old female presenting with chief complaint of right ankle injury. She is neurovascularly intact. X-rays negative for fracture or dislocation. Elvin wrap is applied and patient is provided with a prescription for a walker to use as needed while recovering. Follow-up with PCP. Report back to ER with any new or worsening symptoms. Discussed return parameters and answered all questions. Patient conveyed verbal understanding and agreed to the plan. I discussed this case in detail with my attending Dr. Hastings Undiagnosed new problem with uncertain prognosis? @ -No Drug Therapy requiring intensive monitoring for toxicity (Heparin, Nitro, Insulin, Cardizem)? @ -No Were any procedures done? @ -No Diagnosis/symptom? @ -Ankle sprain Acute, or Chronic, or Acute on Chronic? @ -Acute Uncomplicated (without systemic symptoms) or Complicated (systemic symptoms)? @ -Uncomplicated Side effects of treatment? @ -No Exacerbation, Progression, or Severe Exacerbation? @ -No Poses a threat to life or bodily function? How? (Chest pain, [place], [place], pneumonia, PE, COPD, DKA, ARF, appy, cholecystitis, CVA, Diverticulitis, Homicidal, Suicidal, threat to staff... and all critical care pts) @ -Unlikely Disposition Clinical Impression: Ankle sprain Disposition: HOME SELF-CARE Condition: Good Instructions (If sedation given, give patient instructions): Ankle Sprain (ED) Additional Instructions: Follow-up with PCP. Report back to ER with any new or worsening symptoms. Rest ice compress and elevate the ankle. Take Tylenol as needed for pain control. Is patient prescribed a controlled substance at d/c from ED?: No Referrals: Radha Ramires DO [Primary Care Provider] - 1-2 days Time of Disposition: 21:40
[2024-11-06 22:00] VITALS: BP 154/71; PULSE 90; TEMP 98
== END 2024-11-06 21:59 | disposition home or self-care (01) ==
LOC: EC 20:12
DX: S93.401A Sprain of unspecified ligament of right ankle, initial encounter (principal); F17.200 Nicotine dependence, unspecified, uncomplicated; Z88.2 Allergy status to sulfonamides; W08.XXXA Fall from other furniture, initial encounter
CPT/HCPCS: 99283